=== PATIENT | male | born 1955 | race Caucasian/White ===

== ENCOUNTER 2021-03-02 14:41 | Inpatient (IN) | payer BC, SELFPAY ==
[2021-03-02] VITALS (14 sets, daily range): BP systolic 119–165; BP diastolic 75–101; PULSE 100–131; RESP 21–36; TEMP 36.3–37.2; O2SAT 72–100; BMI 18.1
--- NOTE | ~2021-03-02 | XR_ITS ---
XR chest 1V portable 03/02/2021 17:07 Indication: Shortness of breath, cough. Covid positive. Procedure: AP portable chest Comparison: 06/29/2016 Findings: Patchy infiltrates of the mid and lower lung zones, compatible with pneumonia. No pleural e ffusion or pneumothorax. No acute osseous abnormality. Heart size normal. Impression: 1: Patchy infiltrates of the mid and lower lung zones, compatible with pneumonia. Reviewed, dictated and finalized at location A. Impression: 1: Patchy infiltrates of the mid and lower lung zones, compatible with pneumoni a.
--- NOTE | 2021-03-02 16:27 | PC.NURSE ---
IV started after second attempt. No blood able to be drawn with IV start, vacutainers would not fill, IV flushes easily and painlessly. Will try again for labs.
[2021-03-02 16:55] LABS: Alveolar/Arterial O2 Gradient 35.5 mmHg; Base Excess ABG -21.5 mEq/l (+/-2.0); Fractional Inspired Oxygen 21 %; HCO3 ABG 3.9 mEq/l (22.0-26.0); Oxygen Content ABG 25.4 %vol (16.0-22.0); Oxygen Saturation ABG 96.1 % (95.0-100.0); Oxyhemoglobin 95.8 % THb (90.0-100.0); PO2 ABG 100.9 mmHg (80.0-100.0); Total Hemoglobin 18.8 g/dL (12.0-18.0)
[2021-03-02] MEDS: SODIUM CHLORIDE 0.9% IV 1,000 ML 999 ML IV CONT ×2 (16:55→18:18)
[2021-03-02] MEDS: LORazepam INJ (*CRX) 2 MG/ML VIAL 0.5 MG IV PUSH (16:57)
[2021-03-02] MEDS: ONDANSETRON INJ 4 MG/2 ML VIAL IV PUSH (16:57)
[2021-03-02 16:58] LABS: Device ROOM AIR; Modified Allen's Test Pass; PCO2 ABG 11.1 mmHg (35.0-45.0); Site Drawn RIGHT RADIAL
[2021-03-02 17:02] LABS: Glucose Point of Care > 500 mg/dl (65-105)
[2021-03-02] MEDS: INSULIN HUMAN REGULAR (*BKC) 100 UNITS/ML 12 UNITS IV PUSH (17:08)
--- NOTE | 2021-03-02 17:12 | PC.NURSE ---
Respiratory only able to obtain 0.5ml of blood for ABG, no extra for labs. Second RN trying to obtain labs, fifth attempt total. MD aware of difficulty obtaining labs. IV fluids infusing through the IV.
[2021-03-02 18:06] LABS: D Dimer 2.25 ug/mL (<0.48)
[2021-03-02 18:08] LABS: Hemoglobin A1C 13.4 % (<5.7)
[2021-03-02 18:09] LABS: Lactic Acid Reflex 2.5 mmol/L (0.7-2.1)
[2021-03-02 18:15] LABS: Basophils Percent Auto 0.3 % (0.2-1.2); Hematocrit 50.6 % (42.0-52.0); Hemoglobin 16.9 g/dL (14.0-18.0); Immature Granulocyte Absolute 0.26 K/mm3 (0.00-0.031); Immature Granulocyte Percent A 2.2 % (0-0.5); Lymphocytes Absolute Auto 0.74 K/mm3 (0.9-3.2); Lymphocytes Percent Auto 6.2 % (18.3-44.2); Mean Corpuscular HGB Conc 33.4 g/dl (32-36); Mean Corpuscular Hemoglobin 30.3 pg (26-34); Mean Corpuscular Volume 90.7 fl (80-100); Mean Platelet Volume 10.1 fl (7.4-10.4); Monocytes Absolute Auto 0.4 K/mm3 (0.1-0.6); Monocytes Percent Auto 3.1 % (2.6-8.5); Neutrophils Absolute Auto 10.5 K/mm3 (1.3-6.7); Neutrophils Percent Auto 88.2 % (45.5-73.1); Platelet Count Result 301 k/mm3 (150-375); Red Blood Count 5.58 M/mm3 (4.6-6.20); White Blood Count 11.9 K/mm3 (4.5-10.0)
--- NOTE | 2021-03-02 18:19 | PC.NURSE ---
RN spoke with pharmacy, still have not received insulin drip. MD aware. Pharmacy to send insulin.
--- NOTE | 2021-03-02 18:28 | PC.NURSE ---
Pt urinated on self, clean/dry gown and linens applied. Pt lethargic, remains A&OX4.
[2021-03-02 18:32] LABS: Alanine Aminotransferase 21 U/L (4-50); Albumin Level 4.5 g/dL (3.5-5.1); Alkaline Phosphatase 108 U/L (38-126); Aspartate Amino Transferase 21 U/L (17-59); Bilirubin,Total 0.4 mg/dL (0.2-1.3); Blood Urea Nitrogen 33 mg/dL (9-20); Calcium 9.5 mg/dL (8.4-10.2); Carbon Dioxide < 5 mmol/L (22-30); Chloride 110 mmol/L (98-107); Estimated CRCL calculation 37 ml/min; Estimated Glomerular Filt Rate 47; Glucose 604 mg/dL (65-110); Lipase 31 U/L (23-300); Potassium 4.8 mmol/L (3.4-5.0); Sodium 140 mmol/L (137-145)
--- NOTE | 2021-03-02 18:39 | PC.NURSE ---
Called lab and talked to Neeta almanza on a BMP, Beta Hydroxybut, phos MG
--- NOTE | 2021-03-02 18:58 | ED.NAVMDI ---
HPI - Nausea/Vomiting/Diarrhea General Chief complaint: Nausea/Vomiting/Diarrhea Stated complaint: COVID +, poor appetite, vomiting Time Seen by Provider: 03/02/21 16:00 Source: patient Mode of arrival: ambulatory Limitations: no limitations History of Present Illness HPI Narrative: 66-year-old with a history of diabetes diagnosed with Covid 7 days ago here with complaints of nausea, vomiting, not eating or drinking for last 2 days. He states since this morning his chest has been hurting. Denies any cough. No history of fever or chills. Patient is a poor historian at this time history is hyperventilating MD elicited complaint: nausea and vomiting Associated nausea: Yes Associated abdominal pain: No Exacerbating factors: none Associated symptoms: denies other symptoms Related Data Allergies Allergy/AdvReac Type Severity Reaction Status Date / Time No Known Allergies Allergy Verified 03/02/21 16:31 Review of Systems Review of Systems: ROS unobtainable: Yes unobtainable due to medical condition Exam Narrative: GENERAL: ill -appearing, thin , hyperventilating HEAD: Normocephalic, atraumatic. EYES: PERRLA and EOMI.. NECK: Supple. CHEST: Clear to auscultation. No respiratory distress. HEART: tachycardic ABDOMEN: Soft, nontender, nondistended, normal active bowel sounds. EXTREMITIES: Normal range of motion. No edema. SKIN: Warm, dry, no rash. NEURO: No focal deficits. Alert and oriented x3. PSYCH: anxious. Course Course Emergency Course: Patient appears to be extremely dehydrated we will give him 2 L of fluids start him on insulin drip. I discussed lab work with the patient . Discussed with hospitalist and geek squad agent agreed with plan. Vital Signs Vital signs: Vital Signs Temperature 36.3 C L 03/02/21 14:44 Pulse Rate 118 H 03/02/21 14:44 Blood Pressure 139/101 H 03/02/21 14:44 Pulse Oximetry 100 03/02/21 14:44 Temperature 36.3 C L 03/02/21 14:44 Pulse Rate 118 H 03/02/21 17:48 Respiratory Rate 28 H 03/02/21 17:48 Blood Pressure 145/87 H 03/02/21 16:33 Pulse Oximetry 100 03/02/21 17:00 MDM - Nausea/Vomiting/Diarrhea MDM Narrative Medical decision making narrative: With a history of diabetes, not feeling well and appears to be dehydrated and hyperventilating suspected could be DKA versus FAITH. We will start him on IV fluids, obtain blood gases. His blood sugar was greater than 600 give him IV bolus insulin and start him on insulin drip. Differential Diagnosis Differential diagnosis: Likely dehydration Medical Records Attestation: I reviewed the patient's medical records. Lab Data Attestation: I reviewed the patient's lab results. Result diagrams: 03/02/21 17:44 03/02/21 17:44 Labs: Lab Results 03/02/21 03/02/21 03/02/21 Range/Units 16:53 17:44 17:44 WBC 11.9 H (4.5-10.0) K/mm3 RBC 5.58 (4.6-6.20) M/mm3 Hgb 16.9 (14.0-18.0) g/dL Hct 50.6 (42.0-52.0) % MCV 90.7 (80-100) fl MCH 30.3 (26-34) pg MCHC 33.4 (32-36) g/dl RDW 12.0 (11.5-14.5) % Plt Count 301 (150-375) k/mm3 MPV 10.1 (7.4-10.4) fl Immature Gran % (Auto) 2.2 H (0-0.5) % Neut % (Auto) 88.2 H (45.5-73.1) % Lymph % (Auto) 6.2 L (18.3-44.2) % [place] % (Auto) 3.1 (2.6-8.5) % Eos % (Auto) 0.0 (0-4.4) % Baso % (Auto) 0.3 (0.2-1.2) % Lymph # (Auto) 0.74 L (0.9-3.2) K/mm3 [place] # (Auto) 0.4 (0.1-0.6) K/mm3 Eos # (Auto) 0.0 (0-0.3) K/mm3 Baso # (Auto) 0.0 (0.0-0.1) K/mm3 Abs Immat Gran (auto) 0.26 H (0.00-0.031) K/mm3 Absolute Neuts (auto) 10.5 H (1.3-6.7) K/mm3 Absolute Nucleated RBC 0.0 (0.0-0.012) K/mm3 Nucleated RBC % 0.0 (0.0-0.2) % D-Dimer (<0.48) ug/mL Sodium (137-145) mmol/L Potassium (3.4-5.0) mmol/L Chloride (98-107) mmol/L Carbon Dioxide (22-30) mmol/L Anion Gap (8-16) mmol/L BUN (9-20) mg/dL Creatinine (0.7-1.3) mg/dL Estim Creat
--- NOTE | 2021-03-02 19:10 | PC.NURSE ---
Insulin drip started at 1900 with Mahsa RN as second RN check. Difficulty with linking insulin bag with order via MAR, speaking with pharmacy currently. Verified insulin bag x 2 nurses.
[2021-03-02] MEDS: SODIUM BICARBONATE 8.4% 50 MEQ/50 ML SYRINGE IV PUSH ×2 (19:13→20:06)
[2021-03-02 19:28] LABS: Magnesium 2.9 mg/dL (1.6-2.3); Phosphorus 4.4 mg/dL (2.5-4.5)
[2021-03-02 19:34] LABS: Glucose Point of Care 445 mg/dl (65-105)
--- NOTE | 2021-03-02 19:58 | PM.IMHP ---
H&P: HPI History of Present Illness Date/Time: 03/02/21 19:58 this is a 66-year-old male patient who has diabetes type 2 diagnosed approximately 4 years ago. The patient recently was diagnosed with COVID-19 on February 17. The patient stated he has not been taking his insulin are monitoring his insulin as he is too tired and too sick from the COVID-19. His white count is noted to be 11.9. D-dimer is 2.25. Arterial blood gases pH 7.16. CO2 was 11.1. PO2 was 100.9. His blood sugar was 604 his A1c 13.4 lactic 2.5. It magnesium 2.9. His anion gap was outside of the in layers there was reportable limits and they were not able to calculate the anion gap. The auto club safety program coordinator was notified that the patient has DKA and he was started on insulin drip. He will be going to ICU. The patient had no fever chills and was a very poor historian. The patient was hyperventilating in the emergency room. Patient appears very ill. The patient complained of nausea and vomiting. He was given Zofran IV, Ativan IV, IV insulin, insulin drip, and sodium bicarb. The patient is being admitted to inpatient services on the date of service of 03/02/2021 Chief Complaint: Nausea and vomiting Review of Systems Review of Systems: All systems reviewed & are unremarkable except as noted in HPI and below Constitutional: Constitutional: Reports as per HPI and Reports no additional constitutional complaints Eyes: Eyes: Reports as per HPI and Reports no additional eye complaints ENT: Reports system reviewed and no additional complaints, except as documented and Reports Normal hearing present Cardiovascular: Cardiovascular: Reports no additional cardiovascular complaints Respiratory: Respiratory: Reports no additional respiratory complaints and Reports no additional respiratory complaints Gastrointestinal: Gastrointestinal: Reports as per HPI and Reports no additional gastrointestinal complaints Musculoskeletal: Musculoskeletal: Reports no additional musculoskeletal complaints Integumentary/Breasts: Skin/Breast: Reports system reviewed and no additional complaints, except as docu and Reports as per HPI Neurologic: Reports system reviewed and no additional complaints, except as documented, Reports as per HPI and Reports Normal hearing present Psychiatric: Psychiatric: Reports no additional psychiatric complaints and Reports as per HPI Endocrine: Endocrine: Reports no additional endocrine complaints Hematologic/Lymphatic: Hematologic/Lymphatic: Reports no additional hematologic/lymphatic complaints Allergic/Immunologic: Allergic/Immunologic: Reports no additional allergic/immunologic complaints [facility] Past Medical History Medical History (Updated 03/02/21 @ 20:08 by Sidra Washington NP) Chronic GERD DM2 (diabetes mellitus, type 2) Gout Surgical History Surgical History (Updated 03/02/21 @ 20:08 by Sidra Washington NP) H/O hernia repair Family History Family History (Updated 03/02/21 @ 20:09 by Sidra Washington NP) Mother Cancer Mother Cancer Social History Social History (Updated 03/02/21 @ 20:11 by Sidra Washington NP) Social History: The patient is and lives with his . His daughter now lives with him as well as the grand children as his son-in-law just from COVID-19 this month. The patient stated that he is a DNR. 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 Lifelong nonsmoker and no alcohol or illicit drugs. His is the durable power bankruptcy attorney for healthcare. Code status DNR Meds Home Medications and Allergies Allergies Allergy/AdvReac Type Severity Reaction Status Date / Time No Known Allergies Allergy Verified 03/02/21 16:31 Vital Signs Vital Signs - 24 hr 03/02/21 14:44 03/02/21 16:18 03/02/21 16:28 Temperature 36.3 C L Pulse Rate 118 H 130 H 120 H Respiratory Rate 36 H 28 H Blood Pressure 139/101 H 165/97 H Pulse Oximetry 100 98 100
--- NOTE | 2021-03-02 20:00 | PC.NURSE ---
BS 364. Insulin drip rate increased to 9.1 units/hour, verified by ISATU Conner.
[2021-03-02] MEDS: SODIUM CHLORIDE 0.9% IV 1,000 ML 150 ML IV CONT (20:06)
[2021-03-02 20:52] LABS: Reflex Lactic Acid Yes or No Add Lactic
[2021-03-02] MEDS: INSULIN HUMAN REGULAR (*BKC) 100 UNITS in SODIUM CHLORIDE 0.9% IV 99 ML 10.5 UNITS IV CONT (21:00)
--- NOTE | 2021-03-02 21:08 | PC.NURSE ---
Repeat BS 322. Insulin drip rate increased to 10.5 units/hr, verified by ISATU Bragg. Repeat BMP attempted, unable to draw. Pt to be transferred to ICU at this time.
[2021-03-02 21:20] LABS: Glucose Point of Care 322 mg/dl (65-105)
[2021-03-02 21:20] LABS: Glucose Point of Care 364 mg/dl (65-105)
[2021-03-02 22:15] LABS: Anion Gap 22 mmol/L (8-16); Blood Urea Nitrogen 31 mg/dL (9-20); Calcium 9.4 mg/dL (8.4-10.2); Carbon Dioxide 12 mmol/L (22-30); Chloride 117 mmol/L (98-107); Estimated CRCL calculation 55 ml/min; Estimated Glomerular Filt Rate > 60; Glucose 285 mg/dL (65-110); Sodium 151 mmol/L (137-145)
--- NOTE | 2021-03-02 22:35 | ADMIMU ---
This patient, Amando Chase, was admitted to IMU status, and placed in Intensive Care Unit-1 on 03/02 2115. Patient oriented to hospital policies and general routines including ID bracelet, bed and alarms, visiting hours, pain management, procedures, bathroom and other care routines, personal items, smoking policy, room service/diet, and visiting hours. Information on how to activate the Rapid Response Team has been discussed. Patient/Family are encouraged to report perceived risks to care and to ask questions if they do not understand what they are told or what they should do.
[2021-03-02] MEDS: FAMOTIDINE 20 MG/2 ML VIAL IV PUSH (22:43)
[2021-03-02] MEDS: KCL 20 MEQ/D5/0.45% SOD CHL 1,000 ML 150 ML IV CONT (22:52)
--- NOTE | 2021-03-02 22:53 | PC.NURSE ---
During admission assessment pt states wish to be DNI/DNR. No breathing tube or vent, no compressions or meds regardless of situation. Pt refuses Flu vaccine and states he was not vaccinated for covid.
[2021-03-02 23:30] LABS: Glucose Point of Care 238 mg/dl (65-105)
[2021-03-02 23:30] LABS: Glucose Point of Care 194 mg/dl (65-105)
[2021-03-03] VITALS (12 sets, daily range): BP systolic 113–129; BP diastolic 69–76; PULSE 76–122; RESP 21–29; TEMP 37.1–37.7; O2SAT 93–98; BMI 16.6
[2021-03-03 00:58] LABS: Glucose Point of Care 208 mg/dl (65-105)
[2021-03-03 01:59] LABS: Glucose Point of Care 203 mg/dl (65-105)
[2021-03-03 02:09] LABS: Lactic Acid Reflex 1.8 mmol/L (0.7-2.1)
--- NOTE | 2021-03-03 02:10 | PC.NURSE ---
Message left for telehealth nurse educator per consult
[2021-03-03 02:14] LABS: Anion Gap 12 mmol/L (8-16); Blood Urea Nitrogen 27 mg/dL (9-20); Calcium 8.9 mg/dL (8.4-10.2); Carbon Dioxide 19 mmol/L (22-30); Chloride 118 mmol/L (98-107); Estimated CRCL calculation 56 ml/min; Estimated Glomerular Filt Rate > 60; Glucose 228 mg/dL (65-110); Sodium 149 mmol/L (137-145)
[2021-03-03] MEDS: INSULIN HUMAN REGULAR (*BKC) 100 UNITS in SODIUM CHLORIDE 0.9% IV 99 ML IV CONT (03:04)
[2021-03-03 03:12] LABS: Glucose Point of Care 177 mg/dl (65-105)
[2021-03-03 04:09] LABS: Glucose Point of Care 190 mg/dl (65-105)
[2021-03-03 04:27] LABS: Add Urine Microscopic? YES; Appearance Urine Clear (Clear); Bilirubin Urine Negative (Negative); Blood Urine 1+ (Negative); Color Urine Yellow (Yellow); Glucose Urine UA 3+ mg/dL (Negative); Ketones Urine 2+ mg/dL (Negative); Leukocyte Esterase Ur Negative LEU/UL (Negative); Mucus Urine Rare /lpf; Nitrate Urine Negative (Negative); Protein Urine 1+ mg/dL (Negative); RBC Urine 0-2 /hpf (0-2); Specific Grav Ur 1.026 (1.001-1.035); Urobilinogen Urine Negative mg/dL (<2.0); WBC Urine 0-3 /hpf
[2021-03-03] MEDS: KCL 20 MEQ/D5/0.45% SOD CHL 1,000 ML 150 ML IV CONT (05:15)
[2021-03-03 05:37] LABS: Glucose Point of Care 198 mg/dl (65-105)
[2021-03-03 06:03] LABS: Alanine Aminotransferase 17 U/L (4-50); Albumin Level 3.6 g/dL (3.5-5.1); Alkaline Phosphatase 72 U/L (38-126); Anion Gap 11 mmol/L (8-16); Aspartate Amino Transferase 23 U/L (17-59); Bilirubin,Total 0.4 mg/dL (0.2-1.3); Blood Urea Nitrogen 24 mg/dL (9-20); Calcium 8.9 mg/dL (8.4-10.2); Carbon Dioxide 17 mmol/L (22-30); Chloride 121 mmol/L (98-107); Estimated CRCL calculation 57 ml/min; Estimated Glomerular Filt Rate > 60; Glucose 187 mg/dL (65-110); Magnesium 2.3 mg/dL (1.6-2.3); Sodium 149 mmol/L (137-145)
[2021-03-03] MEDS: INSULIN GLARGINE (*BKC) 100 UNITS/ML 20 UNITS SUB-Q (06:52)
[2021-03-03 07:33] LABS: Glucose Point of Care 143 mg/dl (65-105)
[2021-03-03 07:33] LABS: Glucose Point of Care 164 mg/dl (65-105)
[2021-03-03] MEDS: LACTATED RINGERS 1,000 ML 100 ML IV CONT ×2 (07:54→17:37)
[2021-03-03 08:04] LABS: Basophils Percent Auto 0.2 % (0.2-1.2); Eosinophils Percent Auto 0.1 % (0-4.4); Hematocrit 44.6 % (42.0-52.0); Hemoglobin 15.7 g/dL (14.0-18.0); Immature Granulocyte Absolute 0.09 K/mm3 (0.00-0.031); Immature Granulocyte Percent A 0.8 % (0-0.5); Lymphocytes Absolute Auto 0.71 K/mm3 (0.9-3.2); Lymphocytes Percent Auto 5.9 % (18.3-44.2); Mean Corpuscular HGB Conc 35.2 g/dl (32-36); Mean Corpuscular Hemoglobin 30.8 pg (26-34); Mean Corpuscular Volume 87.5 fl (80-100); Mean Platelet Volume 9.5 fl (7.4-10.4); Monocytes Absolute Auto 0.6 K/mm3 (0.1-0.6); Monocytes Percent Auto 4.8 % (2.6-8.5); Neutrophils Absolute Auto 10.6 K/mm3 (1.3-6.7); Neutrophils Percent Auto 88.2 % (45.5-73.1); Platelet Count Result 252 k/mm3 (150-375); Red Cell Distribution Width 12.1 % (11.5-14.5)
[2021-03-03] MEDS: ENOXAPARIN 40 MG/0.4 ML SYRINGE SUB-Q (09:18)
[2021-03-03] MEDS: metFORMIN HCL 500 MG TABLET 1000 MG PO ×2 (09:18→17:32)
[2021-03-03] MEDS: FAMOTIDINE 20 MG/2 ML VIAL IV PUSH ×2 (09:18→21:03)
[2021-03-03 09:23] LABS: Thyroid Stimulating Hormone Reflex 0.414 uIU/mL (0.465-4.68)
[2021-03-03 09:25] LABS: Glucose Point of Care 174 mg/dl (65-105)
--- NOTE | 2021-03-03 09:57 | WPDCNINT ---
Assessment and Plan Assessment and plan (1) DKA (diabetic ketoacidosis): Qualifiers: Diabetes mellitus complication detail: without coma Diabetes mellitus type: type 2 Qualified Code(s): E11.10 - Type 2 diabetes mellitus with ketoacidosis without coma Code(s): E11.10 - Type 2 diabetes mellitus with ketoacidosis without coma Status: Acute Assessment and Plan: Patient presented on 03/02/2021 to the ED with complains of nausea, vomiting, diarrhea, fatigue. Patient had elevated blood sugars, anion gap metabolic acidosis, positive beta hydroxybutyrate and was diagnosed with DKA, given IV fluids and started on insulin infusion per DKA protocol and transferred to the ICU for further management -patient was given additional IV fluid bolus this morning as he was thirsty with dry oral mucosa and tachycardia -tachycardia resolved with additional IV fluid bolus -patient has been transition to long-acting insulin and sliding scale insulin along with p.o. metformin (2) DM2 (diabetes mellitus, type 2): Code(s): E11.9 - Type 2 diabetes mellitus without complications Status: Chronic Assessment and Plan: Patient has history of diabetes type 2, stated that he has not been taking his insulin as he was very weak and sick with COVID-19 -hemoglobin A1c this admission is 13.4 (3) COVID-19: Code(s): U07.1 - COVID-19 Status: Acute Assessment and Plan: Patient tested positive for COVID -19 on 02/17/2021 -currently on room air -continue to monitor (4) Chronic GERD: Code(s): K21.9 - Gastro-esophageal reflux disease without esophagitis Status: Chronic Assessment and Plan: Continue famotidine (5) DVT prophylaxis: Code(s): Z29.9 - Encounter for prophylactic measures, unspecified Status: Acute Assessment and Plan: Lovenox subQ Additional Plan Discussed with patient updated with his condition and plan of care. He is aware that he will be transition to long-acting insulin and metformin. Code status: Do not resuscitate Critical care time spent:47 minutes This dictation may have been done utilizing a voice recognition system. Attempts have been made to correct errors. However, there may be uncorrected grammatical, spelling, and recognition errors present. Due to a high probability of clinically significant, life threatening deterioration, the patient required my highest level of preparedness to intervene emergently and I personally spent this critical care time directly and personally managing the patient. This critical care time included obtaining a history; examining the patient; pulse oximetry; ordering and review of studies; arranging urgent treatment with development of a management plan; evaluation of patient's response to treatment; frequent reassessment; and discussions with other providers. It was exclusive of separately billable procedures and treating other patients and teaching time. Please see Assessment and Plan section and the rest of the note for further information on patient assessment and treatment Shredding Machine Tender Consult Note Consult date: 03/03/21 Time Seen: 06:49 Reason for consult: DKA, Covid positive HPI: Amando Chase is a 66 year old male with past medical history of chronic GERD, diabetes type 2, gout presented the ED on 03/02/2021 with complaints of nausea, vomiting, diarrhea. Patient also stated that he was tested positive for COVID on 02/17/2021. Patient states that he has not been taking his insulin for monitoring his blood sugars as he was too tired and sick from COVID-19. In the ER patient had elevated blood sugars, anion gap metabolic acidosis along with positive beta hydroxybutyrate. Patient was diagnosed with DKA, given IV fluids and started on insulin infusion per DKA protocol and transferred to the ICU for further management. Patient has been on room air with no respiratory symptoms. Patient seen and examined this morning, sta
[2021-03-03] MEDS: LACTATED RINGERS 1,000 ML 999 ML IV CONT (10:15)
[2021-03-03 12:45] LABS: Glucose Point of Care 291 mg/dl (65-105)
[2021-03-03] MEDS: INSULIN ASPART (*BKC) 100 UNITS/ML SUB-Q (13:08)
[2021-03-03 13:22] LABS: Free T4 Free Thyroxine Reflex 1.21 ng/dL (0.78-2.19)
[2021-03-03 14:39] LABS: Total Triiodothyronine (T3) 0.46 NG/ML (0.97-1.69)
[2021-03-03] MEDS: ACETAMINOPHEN 325 MG TABLET 650 MG PO (17:36)
[2021-03-03 18:41] LABS: Glucose Point of Care 136 mg/dl (65-105)
[2021-03-04] VITALS (7 sets, daily range): BP systolic 112–130; BP diastolic 66–80; PULSE 61–80; RESP 16–24; TEMP 36.1–37.6; O2SAT 95–98
[2021-03-04 02:12] LABS: Glucose Point of Care 198 mg/dl (65-105)
[2021-03-04] MEDS: LACTATED RINGERS 1,000 ML 100 ML IV CONT (03:21)
[2021-03-04 04:23] LABS: Basophils Percent Auto 0.2 % (0.2-1.2); Eosinophils Absolute Auto 0.1 K/mm3 (0-0.3); Eosinophils Percent Auto 1.1 % (0-4.4); Hematocrit 35.3 % (42.0-52.0); Hemoglobin 12.7 g/dL (14.0-18.0); Immature Granulocyte Absolute 0.09 K/mm3 (0.00-0.031); Immature Granulocyte Percent A 0.9 % (0-0.5); Lymphocytes Absolute Auto 1.36 K/mm3 (0.9-3.2); Lymphocytes Percent Auto 13.1 % (18.3-44.2); Mean Corpuscular Hemoglobin 30.8 pg (26-34); Mean Corpuscular Volume 85.7 fl (80-100); Mean Platelet Volume 9.3 fl (7.4-10.4); Monocytes Absolute Auto 0.6 K/mm3 (0.1-0.6); Monocytes Percent Auto 5.3 % (2.6-8.5); Neutrophils Absolute Auto 8.3 K/mm3 (1.3-6.7); Neutrophils Percent Auto 79.4 % (45.5-73.1); Platelet Count Result 237 k/mm3 (150-375); Red Blood Count 4.12 M/mm3 (4.6-6.20); Red Cell Distribution Width 12.3 % (11.5-14.5); White Blood Count 10.4 K/mm3 (4.5-10.0)
[2021-03-04 04:40] LABS: Alanine Aminotransferase 17 U/L (4-50); Albumin Level 2.8 g/dL (3.5-5.1); Alkaline Phosphatase 61 U/L (38-126); Anion Gap 6 mmol/L (8-16); Aspartate Amino Transferase 31 U/L (17-59); Bilirubin,Total 0.3 mg/dL (0.2-1.3); Blood Urea Nitrogen 13 mg/dL (9-20); Calcium 8.4 mg/dL (8.4-10.2); Carbon Dioxide 25 mmol/L (22-30); Chloride 114 mmol/L (98-107); Estimated CRCL calculation 68 ml/min; Estimated Glomerular Filt Rate > 60; Glucose 243 mg/dL (65-110); Potassium 3.7 mmol/L (3.4-5.0); Sodium 145 mmol/L (137-145)
[2021-03-04] MEDS: INSULIN ASPART (*BKC) 100 UNITS/ML SUB-Q ×3 (09:26→19:03)
[2021-03-04] MEDS: ENOXAPARIN 40 MG/0.4 ML SYRINGE SUB-Q (09:27)
[2021-03-04] MEDS: FAMOTIDINE 20 MG/2 ML VIAL IV PUSH ×2 (09:27→20:26)
[2021-03-04] MEDS: metFORMIN HCL 500 MG TABLET 1000 MG PO ×2 (09:27→19:03)
[2021-03-04] MEDS: INSULIN GLARGINE (*BKC) 100 UNITS/ML 20 UNITS SUB-Q (09:28)
[2021-03-04 09:37] LABS: Glucose Point of Care 223 mg/dl (65-105)
[2021-03-04 12:41] LABS: Glucose Point of Care 210 mg/dl (65-105)
--- NOTE | 2021-03-04 13:47 | PC.NURSE ---
This patient, Amando Chase, was transferred to [facility] on 03/04/21 at 1320. Personal belongings sent with patient. Report given to RN. Appropriate documentation sent with patient.
[2021-03-04 19:52] LABS: Glucose Point of Care 221 mg/dl (65-105)
[2021-03-04 21:20] LABS: Glucose Point of Care 190 mg/dl (65-105)
[2021-03-05] VITALS: BP 111/68; PULSE 68; RESP 16; TEMP 36.7; O2SAT 96
--- NOTE | 2021-03-05 07:48 | PM.IMPN ---
Progress Note: A&P Assessment and Plan (1) DKA (diabetic ketoacidosis): Qualifiers: Diabetes mellitus complication detail: without coma Diabetes mellitus type: type 2 Qualified Code(s): E11.10 - Type 2 diabetes mellitus with ketoacidosis without coma Code(s): E11.10 - Type 2 diabetes mellitus with ketoacidosis without coma Status: Acute Assessment and Plan: Patient presented on 03/02/2021 to the ED with complains of nausea, vomiting, diarrhea, fatigue. Patient had elevated blood sugars, anion gap metabolic acidosis, positive beta hydroxybutyrate and was diagnosed with DKA, given IV fluids and started on insulin infusion per DKA protocol and transferred to the ICU for further management -patient was given additional IV fluid bolus this morning as he was thirsty with dry oral mucosa and tachycardia -tachycardia resolved with additional IV fluid bolus -patient has been transition to long-acting insulin and sliding scale insulin along with p.o. metformin 03/04/2021 Interval History: Today patient is sitting in his chair patient is isolated COVID test is pending, denies any complaint chest pain or shortness of breath polyuria polydipsia, patient is off insulin drip and on long-acting insulin as well as sliding scale, patient was started on metformin, patient is clinically stable and will be moved out of ICU today and will take over the care. spoke with the patient on phone from outside ICU glass door (2) DM2 (diabetes mellitus, type 2): Code(s): E11.9 - Type 2 diabetes mellitus without complications Status: Chronic Assessment and Plan: Patient has history of diabetes type 2, stated that he has not been taking his insulin as he was very weak and sick with COVID-19 -hemoglobin A1c this admission is 13.4 (3) COVID-19: Code(s): U07.1 - COVID-19 Status: Acute Assessment and Plan: Patient tested positive for COVID -19 on 02/17/2021 -currently on room air -continue to monitor (4) Chronic GERD: Code(s): K21.9 - Gastro-esophageal reflux disease without esophagitis Status: Chronic Assessment and Plan: Continue famotidine (5) DVT prophylaxis: Code(s): Z29.9 - Encounter for prophylactic measures, unspecified Status: Acute Assessment and Plan: Lovenox subQ Subjective Date/time seen: 03/04/2021 Patient presented on 03/02/2021 to the ED with complains of nausea, vomiting, diarrhea, fatigue. Patient had elevated blood sugars, anion gap metabolic acidosis, positive beta hydroxybutyrate and was diagnosed with DKA, given IV fluids and started on insulin infusion per DKA protocol and transferred to the ICU for further management -patient was given additional IV fluid bolus this morning as he was thirsty with dry oral mucosa and tachycardia -tachycardia resolved with additional IV fluid bolus -patient has been transition to long-acting insulin and sliding scale insulin along with p.o. metformin 03/04/2021 Interval History: Today patient is sitting in his chair patient is isolated COVID test is pending, denies any complaint chest pain or shortness of breath polyuria polydipsia, patient is off insulin drip and on long-acting insulin as well as sliding scale, patient was started on metformin, patient is clinically stable and will be moved out of ICU today and will take over the care. spoke with the patient on phone from outside ICU glass door Review of Systems Review of Systems: All systems reviewed & are unremarkable except as noted in HPI and below Exam Narrative: undernourished Patient is comfortable, NAD HEENT: eyes are clear and none icteric LUNGS: normal respiratory effort ABD: not distended Lower extremities: no edema SKIN: nonjaundiced Neuro: grossly intact normal speech. Objective Data Vital Signs Vital Signs: Vital Signs - 24 hr 03/04/21 08:00 03/04/21 12:00 03/04/21 16:00 Temperature 97.8 F 96.9 F L Pulse Rate 69 73 61 Respir
[2021-03-05 08:00] VITALS: BP 133/67; PULSE 89; RESP 18; TEMP 36.3; O2SAT 99
[2021-03-05 08:15] LABS: Glucose Point of Care 185 mg/dl (65-105)
[2021-03-05] MEDS: FAMOTIDINE 20 MG/2 ML VIAL IV PUSH (08:32)
[2021-03-05] MEDS: metFORMIN HCL 500 MG TABLET 1000 MG PO (08:32)
[2021-03-05] MEDS: ENOXAPARIN 40 MG/0.4 ML SYRINGE SUB-Q (08:32)
[2021-03-05] MEDS: INSULIN GLARGINE (*BKC) 100 UNITS/ML 20 UNITS SUB-Q (08:37)
[2021-03-05] MEDS: ONDANSETRON INJ 4 MG/2 ML VIAL IV PUSH (10:01)
[2021-03-05 10:49] LABS: Hematocrit 41.8 % (42.0-52.0); Hemoglobin 15.1 g/dL (14.0-18.0); Mean Corpuscular HGB Conc 36.1 g/dl (32-36); Mean Corpuscular Hemoglobin 30.9 pg (26-34); Mean Corpuscular Volume 85.5 fl (80-100); Mean Platelet Volume 9.5 fl (7.4-10.4); Platelet Count Result 271 k/mm3 (150-375); Red Blood Count 4.89 M/mm3 (4.6-6.20); Red Cell Distribution Width 11.9 % (11.5-14.5); White Blood Count 9.5 K/mm3 (4.5-10.0)
[2021-03-05 10:55] LABS: Anion Gap 10 mmol/L (8-16); Blood Urea Nitrogen 12 mg/dL (9-20); Calcium 8.9 mg/dL (8.4-10.2); Carbon Dioxide 26 mmol/L (22-30); Chloride 102 mmol/L (98-107); Estimated CRCL calculation 89 ml/min; Estimated Glomerular Filt Rate > 60; Glucose 304 mg/dL (65-110); Magnesium 1.9 mg/dL (1.6-2.3); Potassium 3.4 mmol/L (3.4-5.0); Sodium 138 mmol/L (137-145)
--- NOTE | 2021-03-05 12:07 | PM.DS ---
DS: Admitting Diagnosis Discharge Date 03/05/2021 Admitting Diagnosis DKA DS: Discharge Diagnosis Discharge Diagnosis (1) DKA (diabetic ketoacidosis): Qualifiers: Diabetes mellitus complication detail: without coma Diabetes mellitus type: type 2 Qualified Code(s): E11.10 - Type 2 diabetes mellitus with ketoacidosis without coma Code(s): E11.10 - Type 2 diabetes mellitus with ketoacidosis without coma Status: Acute Assessment and Plan: Patient presented on 03/02/2021 to the ED with complains of nausea, vomiting, diarrhea, fatigue. Patient had elevated blood sugars, anion gap metabolic acidosis, positive beta hydroxybutyrate and was diagnosed with DKA, given IV fluids and started on insulin infusion per DKA protocol and transferred to the ICU for further management -patient was given additional IV fluid bolus this morning as he was thirsty with dry oral mucosa and tachycardia -tachycardia resolved with additional IV fluid bolus -patient has been transition to long-acting insulin and sliding scale insulin along with p.o. metformin 03/04/2021 Interval History: Today patient is sitting in his chair patient is isolated COVID test is pending, denies any complaint chest pain or shortness of breath polyuria polydipsia, patient is off insulin drip and on long-acting insulin as well as sliding scale, patient was started on metformin, patient is clinically stable and will be moved out of ICU today and will take over the care. spoke with the patient on phone from outside ICU glass door (2) DM2 (diabetes mellitus, type 2): Code(s): E11.9 - Type 2 diabetes mellitus without complications Status: Chronic Assessment and Plan: Patient has history of diabetes type 2, stated that he has not been taking his insulin as he was very weak and sick with COVID-19 -hemoglobin A1c this admission is 13.4 (3) COVID-19: Code(s): U07.1 - COVID-19 Status: Acute Assessment and Plan: Patient tested positive for COVID -19 on 02/17/2021 -currently on room air -continue to monitor (4) Chronic GERD: Code(s): K21.9 - Gastro-esophageal reflux disease without esophagitis Status: Chronic Assessment and Plan: Continue famotidine (5) DVT prophylaxis: Code(s): Z29.9 - Encounter for prophylactic measures, unspecified Status: Acute Assessment and Plan: Lovenox subQ DS: Summary Hospital Course Reason for hospitalization: this is a 66-year-old male patient who has diabetes type 2 diagnosed approximately 4 years ago. The patient recently was diagnosed with COVID-19 on February 17. The patient stated he has not been taking his insulin are monitoring his insulin as he is too tired and too sick from the COVID-19. His white count is noted to be 11.9. D-dimer is 2.25. Arterial blood gases pH 7.16. CO2 was 11.1. PO2 was 100.9. His blood sugar was 604 his A1c 13.4 lactic 2.5. It magnesium 2.9. His anion gap was outside of the in layers there was reportable limits and they were not able to calculate the anion gap. The pharmacometrician was notified that the patient has DKA and he was started on insulin drip. He will be going to ICU. The patient had no fever chills and was a very poor historian. The patient was hyperventilating in the emergency room. Patient appears very ill. The patient complained of nausea and vomiting. He was given Zofran IV, Ativan IV, IV insulin, insulin drip, and sodium bicarb. The patient is being admitted to inpatient services on the date of service of 03/02/2021 Chief Complaint: Nausea and vomiting Hospital Course: 03/04/2021 Interval History: Today patient is sitting in his chair patient is isolated COVID, tested positive on 02/23, denies any complaint chest pain or shortness of breath polyuria polydipsia, patient is off insulin drip and on long-acting insulin as well as sliding scale, patient was started on metformin, patient is clinically stable and will be m
[2021-03-05 12:17] LABS: Glucose Point of Care 215 mg/dl (65-105)
[2021-03-05] MEDS: POTASSIUM CHLORIDE 20 MEQ TABLET 40 MEQ PO (12:51)
[2021-03-05] MEDS: INSULIN ASPART (*BKC) 100 UNITS/ML SUB-Q (12:53)
== END 2021-03-05 15:00 | disposition home or self-care (01) | DRG 637 ==
LOC: ANHED 18:58 → ANHICU 03-03 10:25 → ANH3MEDSUR 03-05 12:07 → ANHICU 03-09 11:52
PROVIDERS: Internal Medicine; Nurse Practitioner; Admitting Provider Internal Medicine; Emergency Provider Family Medicine; PCP Internal Medicine; Visit Provider Family Medicine
DX: E11.10 Type 2 diabetes mellitus with ketoacidosis without coma (principal); U07.1 COVID-19; K21.9 Gastro-esophageal reflux disease without esophagitis; M10.9 Gout, unspecified; Z66 Do not resuscitate; Z28.21 Immunization not carried out because of patient refusal; Z79.4 Long term (current) use of insulin; Z79.84 Long term (current) use of oral hypoglycemic drugs
CPT/HCPCS: 36415; 36600; 71045; 80048; 80053; 81001; 82010; 82805; 82948; 83036; 83605; 83690; 83735; 84100; 84439; 84443; 84480; 85025; 85027; 85380; 96361; 96374; 96375; 97110; 97116; 97161; 97165; 99285; A9270; J1650; J1815; J2060; J2405; J3480; J7030; J7120

== ENCOUNTER 2021-12-27 10:51 | Outpatient (RCR) | payer BC, SELFPAY ==
[2021-12-27 11:02] VITALS: BMI 18.6
[2021-12-27 11:33] VITALS: BMI 18.6
== END 2022-03-14 08:49 | disposition home or self-care (01) ==
LOC: ANHDMC 10:51
PROVIDERS: PCP Internal Medicine; Visit Provider Nurse Practitioner
DX: E13.9 Other specified diabetes mellitus without complications (principal); Z71.3 Dietary counseling and surveillance
CPT/HCPCS: 97802

== ENCOUNTER 2022-02-24 11:15 | Emergency (ER) | payer BC, SELFPAY ==
[2022-02-24 11:25] VITALS: BP 122/74; PULSE 108; RESP 18; TEMP 37.1; O2SAT 97
--- NOTE | 2022-02-24 11:32 | ED.URI ---
HPI - URI/Sore Throat General Chief Complaint: Upper Respiratory Infection Stated Complaint: Coughing, Dehydration Time Seen by Provider: 02/24/22 11:32 Source: patient, RN notes reviewed and old records reviewed Mode of arrival: ambulatory Limitations: no limitations History of Present Illness HPI Narrative: 67-year-old male presents to the [facility] with 1 week of coughing, feeling dehydrated uncontrolled blood sugars and generalized not feeling well. Reporting that he is a type I diabetic and sugars have been in the 600s. States he cannot get them controlled. Reports fevers 101. Patient stated that he thought we could do lab work and IV fluid here in clinic. MD elicited complaint: fever, cough and other (History dehydration) Pertinent past history: other (Type I diabetic) Onset (ago): week(s) (1) Consistency: constant Related Data Home Medications Medication Instructions Recorded Confirmed Lantus U-100 Insulin 20 units subcut HS 03/02/21 03/02/21 metformin 1,000 mg PO BID 03/02/21 03/02/21 Allergies Allergy/AdvReac Type Severity Reaction Status Date / Time No Known Allergies Allergy Verified 03/02/21 16:31 Review of Systems Review of Systems: All systems reviewed & are unremarkable except as noted in HPI and below Constitutional: Constitutional: Reports as per HPI, Denies chills, Reports fatigue and Reports fever(s) Eyes: Eyes: Reports no additional eye complaints ENT: Reports system reviewed and no additional complaints, except as documented Cardiovascular: Cardiovascular: Reports no additional cardiovascular complaints Respiratory: Respiratory: Reports as per HPI, Reports no additional respiratory complaints, Denies chest congestion, Reports cough, Denies dyspnea and Denies wheezing Gastrointestinal: Gastrointestinal: Reports no additional gastrointestinal complaints Musculoskeletal: Musculoskeletal: Reports no additional musculoskeletal complaints Integumentary/Breasts: Skin/Breast: Reports system reviewed and no additional complaints, except as docu Neurologic: Reports system reviewed and no additional complaints, except as documented Psychiatric: Psychiatric: Reports no additional psychiatric complaints Endocrine: Endocrine: Reports as per HPI, Reports fatigue and Reports polydipsia Allergic/Immunologic: Allergic/Immunologic: Reports no additional allergic/immunologic complaints FOR[facility]LY [facility] Past Medical History Medical History (Updated 02/24/22 @ 11:52 by Fawn Garcia, [place]) Chronic GERD Diabetes mellitus DM2 (diabetes mellitus, type 2) Gout Surgical History Surgical History H/O hernia repair Family History Family History Mother Cancer Mother Cancer Social History Social History Social History: The patient is and lives with his . His daughter now lives with him as well as the grand children as his son-in-law just from COVID-19 this month. The patient stated that he is a DNR. 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 Lifelong nonsmoker and no alcohol or illicit drugs. His is the durable power commercial litigation attorney for healthcare. Code status DNR Smoking status: Never smoker Second hand tobacco smoke exposure: No Alcohol intake: never Substance use: never Spiritual care concerns: No Comments At the time of my signature, I reviewed and agree with the nursing past medical, surgical, social, and family history. There is no relevant family history pertinent to the patient complaint. Exam Const: General: no acute distress, alert, ill appearing (Acute on chronic) and well nourished Nutritional Appearance: well nourished and thin Orientation/consciousness: patient oriented x3 Limitations: no limitations HENMT: Head: normal to inspection Ear
[2022-02-24 11:39] LABS: Glucose Point of Care 434 mg/dl (65-105)
== END 2022-02-24 11:49 | disposition short-term general hospital (02) ==
PROVIDERS: Emergency Provider Nurse Practitioner; PCP Internal Medicine
DX: E10.65 Type 1 diabetes mellitus with hyperglycemia (principal); Z79.4 Long term (current) use of insulin; Z79.84 Long term (current) use of oral hypoglycemic drugs; M10.9 Gout, unspecified; K21.9 Gastro-esophageal reflux disease without esophagitis
CPT/HCPCS: 82948; 99212; G0463

== ENCOUNTER 2022-02-24 12:03 | Observation (INO) | payer BC, SELFPAY ==
[2022-02-24] VITALS (27 sets, daily range): BP systolic 112–137; BP diastolic 65–109; PULSE 94–115; RESP 13–29; TEMP 36.7–37.7; O2SAT 97–100; BMI 19.5
--- NOTE | ~2022-02-24 | XR_ITS ---
EXAMINATION: XR chest 2V DATE: 02/24/2022 12:54 INDICATION: Pneumonia. Cough and congestion. TECHNIQUE: Frontal and lateral views of the chest were obtained. COMPARISON: Chest single view 03/02/2021, chest CT 06/29/2016 FINDINGS: There are airspace opacities in the basilar lower lobes. No pleural effusion or pneumothora x. The heart size is normal. There is a gallstone in the gallbladder. IMPRESSION: 1. Airspace opacities in the basilar lower lobes, consistent with atelectasis versus pneumonia. 2. Cholelithiasis. Reviewed, dictated and finalized at location A. IMPRESSION: 1. Airspace opacities in the basilar lower lobes, consistent with atelectasis v ersus pneumonia. 2. Cholelithiasis.
--- NOTE | 2022-02-24 12:13 | ED.RECABL ---
HPI - Recheck/Abnormal Lab/Rx General Chief Complaint: Recheck/Abnormal Lab/Rx Stated Complaint: Blood sugar, dehydration, sent over from [facility] Time Seen by Provider: 02/24/22 12:10 History of Present Illness HPI narrative: Patient is a 67-year-old male with a history of type 1 diabetes presenting with hyperglycemia. Patient states that for the last week he has had URI-like symptoms. States that his cough is worsened over the last couple of days. He was seen in urgent care earlier today and found to have high blood sugar so he was sent in for further evaluation. States that he feels dehydrated. States that he feels like he has had spasms in his chest. Complains of intermittent stabbing chest pain and mild shortness of breath. He denies headache, lightheadedness, numbness or weakness, abdominal pain, nausea or vomiting, diarrhea, dysuria, leg swelling. Related Data Home Medications Medication Instructions Recorded Confirmed Semglee Pen U-100 Insulin See Rx Instructions .Route .COMPLEX 02/24/22 02/24/22 Humalog U-100 Insulin See Protocol 02/25/22 Allergies Allergy/AdvReac Type Severity Reaction Status Date / Time No Known Allergies Allergy Verified 02/24/22 18:03 Review of Systems Review of Systems: All systems reviewed & are unremarkable except as noted in HPI and below PMFSH Past Medical History Medical History (Updated 02/26/22 @ 19:01 by Parul Ricardo MD) Chronic GERD COVID-19 Diabetes mellitus DM2 (diabetes mellitus, type 2) Gout Surgical History Surgical History H/O hernia repair Family History Family History Mother Cancer Mother Cancer Social History Social History (Updated 02/24/22 @ 16:29 by Sidra Washington NP) Social History: The patient is and lives with his . 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 Lifelong nonsmoker and no alcohol or illicit drugs. His is the durable power criminal attorney for healthcare. Code status DNR Smoking status: Never smoker Second hand tobacco smoke exposure: No Alcohol intake: never Substance use: never Substance use type: does not use Spiritual care concerns: No Has the Lack of Transportation Kept You From Medical Appointments or From Getting Medications?: No Within the Past 12 Months, Were You Worried Whether Your Food Would Run Out Before You Got Money to Buy More?: Never True What is Your Housing Situation Today?: I Have Housing Are You Worried That in the Next 2 Months, You May Not Have Your Own Housing to Live In?: No Do You Have Trouble Paying Your Heating Or Electricity Bill?: No Do You Have Trouble Paying For Medicines?: No Are You Currently Unemployed and Looking for Work?: No Highest Level of Education Completed: Bachelor's Degree Do You Have Trouble With Childcare or the Care of a Family Member?: No Exam Narrative: GENERAL: Well-appearing, well-nourished, and in no acute distress. HEAD: Normocephalic, atraumatic. EYES: PERRLA and EOMI. ENT: Nares clear, no rhinorrhea or epistaxis. Mucous membranes moist. NECK: Supple. CHEST: Clear to auscultation. No respiratory distress. HEART: Tachycardic, regular rhythm. No murmur heard. Normal peripheral pulses. ABDOMEN: Soft, nontender, nondistended, normal active bowel sounds. EXTREMITIES: Normal range of motion. No edema. SKIN: Warm, dry, no rash. NEURO: No focal deficits. Alert and oriented x3. PSYCH: Normal mood and affect. Course Course Emergency Course: Patient is a 67-year-old male presenting with hyperglycemia and URI symptoms. Patient is tachycardic, otherwise vitals are within normal limits. Exam is unremarkable. EKG per my interpretation shows normal
[2022-02-24 12:15] LABS: Glucose Point of Care 374 mg/dl (65-105)
[2022-02-24 12:26] LABS: Basophils Absolute Auto 0.1 K/mm3 (0.0-0.1); Basophils Percent Auto 0.4 % (0.2-1.2); Eosinophils Absolute Auto 0.2 K/mm3 (0-0.3); Eosinophils Percent Auto 0.9 % (0-4.4); Hematocrit 41.6 % (42.0-52.0); Hemoglobin 14.5 g/dL (14.0-18.0); Immature Granulocyte Absolute 0.09 K/mm3 (0.00-0.031); Immature Granulocyte Percent A 0.5 % (0-0.5); Lymphocytes Percent Auto 6.7 % (18.3-44.2); Mean Corpuscular HGB Conc 34.9 g/dl (32-36); Mean Corpuscular Hemoglobin 29.7 pg (26-34); Mean Corpuscular Volume 85.1 fl (80-100); Mean Platelet Volume 9.2 fl (7.4-10.4); Monocytes Absolute Auto 1.2 K/mm3 (0.1-0.6); Monocytes Percent Auto 6.6 % (2.6-8.5); Neutrophils Absolute Auto 15.2 K/mm3 (1.3-6.7); Neutrophils Percent Auto 84.9 % (45.5-73.1); Platelet Count Result 301 k/mm3 (150-375); Red Blood Count 4.89 M/mm3 (4.6-6.20); Red Cell Distribution Width 12.4 % (11.5-14.5)
[2022-02-24 12:36] LABS: Alanine Aminotransferase 19 U/L (6-50); Albumin Level 4.3 g/dL (3.5-5.1); Alkaline Phosphatase 157 U/L (38-126); Anion Gap 20 mmol/L (8-16); Aspartate Amino Transferase 23 U/L (17-59); Bilirubin,Total 0.8 mg/dL (0.2-1.3); Blood Urea Nitrogen 9 mg/dL (9-20); Calcium 9.4 mg/dL (8.4-10.2); Carbon Dioxide 22 mmol/L (22-30); Chloride 94 mmol/L (98-107); Estimated CRCL calculation 114 ml/min; Estimated Glomerular Filt Rate > 60; Glucose 422 mg/dL (65-110); Magnesium 1.8 mg/dL (1.6-2.3); Phosphorus 3.1 mg/dL (2.5-4.5); Potassium 3.7 mmol/L (3.4-5.0); Sodium 136 mmol/L (137-145)
[2022-02-24 12:39] LABS: Add Urine Microscopic? YES; Appearance Urine Clear (Clear); Bacteria Urine Trace /hpf; Bilirubin Urine Negative (Negative); Blood Urine 1+ (Negative); Color Urine Yellow (Yellow); Glucose Urine UA 3+ mg/dL (Negative); Ketones Urine 2+ mg/dL (Negative); Leukocyte Esterase Ur Negative LEU/UL (Negative); Mucus Urine Rare /lpf; Nitrate Urine Negative (Negative); Protein Urine 1+ mg/dL (Negative); Urobilinogen Urine Negative mg/dL (<2.0); WBC Urine 0-3 /hpf
--- NOTE | 2022-02-24 12:50 | ECG_ITS ---
Measurements Intervals [place] Rate: 97 P: 69 [place]: 119 QRS: 65 QRSD: 90 T: 44 QT: 330 QTc: 420 Interpretive Statements SINUS RHYTHM WITH SHORT [place] INTERVAL NONSPECIFIC T-WAVE ABNORMALITY NO PREVIOUS ECG AVAILABLE FOR COMPARISON Electronically Signed On 02-24-2022 14:12:18 CDT by Teofilo Tucker M.D.
[2022-02-24] MEDS: SODIUM CHLORIDE 0.9% IV 1,000 ML 999 ML IV CONT ×2 (12:56→13:29)
[2022-02-24 13:02] LABS: Influenza A QL RT-PCR Negative (Negative); Influenza B QL RT-PCR Negative (Negative); SARS-CoV-2 RNA PCR Negative
[2022-02-24 13:04] LABS: Beta-Hydroxybutyrate/Acetoacetate 1.83 mmol/L (0.02-0.27)
[2022-02-24 13:15] LABS: Troponin I < 0.012 ng/mL (0.000-0.034)
[2022-02-24] MEDS: INSULIN HUMAN REGULAR (*BKC) 100 UNITS/ML 8 UNITS SUB-Q (13:59)
[2022-02-24 14:02] LABS: Glucose Point of Care 304 mg/dl (65-105)
[2022-02-24 15:27] LABS: Anion Gap 16 mmol/L (8-16); Blood Urea Nitrogen 8 mg/dL (9-20); Calcium 8.5 mg/dL (8.4-10.2); Carbon Dioxide 22 mmol/L (22-30); Chloride 101 mmol/L (98-107); Estimated CRCL calculation 114 ml/min; Estimated Glomerular Filt Rate > 60; Glucose 234 mg/dL (65-110); Potassium 3.2 mmol/L (3.4-5.0); Sodium 139 mmol/L (137-145)
[2022-02-24 16:12] LABS: Troponin I < 0.012 ng/mL (0.000-0.034)
--- NOTE | 2022-02-24 16:27 | PM.IMHP ---
H&P: HPI History of Present Illness Date/Time: 02/24/22 16:27 Chief Complaint: abnormal blood sugars Narrative: this is a 67-year-old male patient with a history of diabetes. The patient stated for the last week he had upper respiratory symptoms. He has been coughing and had a worse cough over the couple days. The patient went to urgent care earlier today and was found have a high blood sugar. He was sent to the emergency for further evaluation. The patient does take insulin at home. The patient stated that he feels dehydrated. And feels like he is having spasms in his chest. The patient was complaining of stabbing chest pain and mild shortness of breath. He denied any headache nausea vomiting or diarrhea. Patient's white count was noted to be 18.0. Potassium was 3.2. Patient's blood sugar initially was 434 after 2 L of IV fluids his blood sugar came down at 304 a.m. and 234. Troponin was negative for the initial read. Patient's beta hydroxybutyrate acetoacetate was 1.83. Patient had 2+ ketones 3+ glucose. Influenza a and b and COVID are negative. Chest x-ray was read as airspace opacities in the basilar lower lobes consistent with atelectasis versus pneumonia. Cholelithiasis. The patient was supplemented with IV potassium and given IV fluids. The patient was given units of Humalog in the emergency room. He was started on azithromycin Rocephin. The patient is being admitted to observation status on the date of service of 02/24/2022 Review of Systems Review of Systems: see HPI All systems reviewed & are unremarkable except as noted in HPI and below Constitutional: Constitutional: Reports as per HPI and Reports no additional constitutional complaints Eyes: Eyes: Reports as per HPI and Reports no additional eye complaints ENT: Reports system reviewed and no additional complaints, except as documented and Reports Normal hearing present Cardiovascular: Cardiovascular: Reports no additional cardiovascular complaints Respiratory: Respiratory: Reports no additional respiratory complaints and Reports no additional respiratory complaints Gastrointestinal: Gastrointestinal: Reports as per HPI and Reports no additional gastrointestinal complaints Musculoskeletal: Musculoskeletal: Reports no additional musculoskeletal complaints Integumentary/Breasts: Skin/Breast: Reports system reviewed and no additional complaints, except as docu and Reports as per HPI Neurologic: Reports system reviewed and no additional complaints, except as documented, Reports as per HPI and Reports Normal hearing present Psychiatric: Psychiatric: Reports no additional psychiatric complaints and Reports as per HPI Endocrine: Endocrine: Reports no additional endocrine complaints Hematologic/Lymphatic: Hematologic/Lymphatic: Reports no additional hematologic/lymphatic complaints Allergic/Immunologic: Allergic/Immunologic: Reports no additional allergic/immunologic complaints COUNT INCLUDES THE [facility] Past Medical History Medical History (Updated 02/24/22 @ 19:59 by Sidra Washington NP) Chronic GERD COVID-19 Diabetes mellitus DM2 (diabetes mellitus, type 2) Gout Surgical History Surgical History H/O hernia repair Family History Family History Mother Cancer Mother Cancer Social History Social History (Updated 02/24/22 @ 16:29 by Sidra Washington NP) Social History: The patient is and lives with his . 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 Lifelong nonsmoker and no alcohol or illicit drugs. His is the durable power contracts attorney for healthcare. Code status DNR Smoking status: Never smoker Second hand tobacco smoke exposure: No Alcohol intake: never S
--- NOTE | 2022-02-24 17:17 | ADMGEN ---
This patient, JOE Chase, was admitted to Medical Room 345-01. Patient/family oriented to hospital policies and general routines including ID bracelet, bed and alarms, visiting hours, pain management, procedures, bathroom and other care routines, personal items, smoking policy, room service/diet, and visiting hours. Information on how to activate the Rapid Response Team has been discussed. Patient/Family are encouraged to report perceived risks to care and to ask questions if they do not understand what they are told or what they should do.
[2022-02-24] MEDS: POTASSIUM CHLORIDE INJ 40 MEQ in SODIUM CHLORIDE 0.9% IV 500 ML 130 MEQ IVPB (17:51)
[2022-02-24] MEDS: SODIUM CHLORIDE 0.9% IV 1,000 ML 125 ML IV CONT (17:52)
[2022-02-24 19:41] LABS: Troponin I < 0.012 ng/mL (0.000-0.034)
[2022-02-24] MEDS: FLUTICASONE PROPIONATE 0.05% NA SPR 16 GM BTL (*BKC) 1 SPRAY NASAL (21:36)
[2022-02-24] MEDS: FAMOTIDINE 20 MG/2 ML VIAL IV PUSH (21:36)
[2022-02-24 22:09] LABS: Glucose Point of Care 289 mg/dl (65-105)
[2022-02-24 22:21] LABS: Anion Gap 13 mmol/L (8-16); Blood Urea Nitrogen 6 mg/dL (9-20); Carbon Dioxide 19 mmol/L (22-30); Chloride 104 mmol/L (98-107); Estimated CRCL calculation 86 ml/min; Estimated Glomerular Filt Rate > 60; Glucose 284 mg/dL (65-110); Potassium 3.8 mmol/L (3.4-5.0); Sodium 136 mmol/L (137-145)
[2022-02-24] MEDS: INSULIN GLARGINE (*BKC) 100 UNITS/ML 8 UNITS SUB-Q (23:43)
[2022-02-25] VITALS (7 sets, daily range): BP systolic 109; BP diastolic 59; PULSE 85–103; RESP 18–20; TEMP 37.3; O2SAT 96–97
[2022-02-25] MEDS: IPRATROPIUM BR 0.02% INH SOLN 0.5 MG/2.5 ML VIAL INHALATION ×2 (03:54→07:22)
--- NOTE | 2022-02-25 03:54 | PCRCNOTE ---
Window of time for administration has passed. See next scheduled administration.
[2022-02-25] MEDS: SODIUM CHLORIDE 0.9% IV 1,000 ML 125 ML IV CONT (03:57)
[2022-02-25] MEDS: ALBUTEROL SULFATE NEB 2.5 MG/3 ML INH INHALATION ×2 (04:21→07:23)
[2022-02-25 05:52] LABS: Basophils Absolute Auto 0.1 K/mm3 (0.0-0.1); Basophils Percent Auto 0.5 % (0.2-1.2); Eosinophils Absolute Auto 0.4 K/mm3 (0-0.3); Eosinophils Percent Auto 2.7 % (0-4.4); Hematocrit 35.8 % (42.0-52.0); Hemoglobin 12.3 g/dL (14.0-18.0); Immature Granulocyte Absolute 0.17 K/mm3 (0.00-0.031); Immature Granulocyte Percent A 1.3 % (0-0.5); Lymphocytes Absolute Auto 1.75 K/mm3 (0.9-3.2); Lymphocytes Percent Auto 13.3 % (18.3-44.2); Mean Corpuscular HGB Conc 34.4 g/dl (32-36); Mean Corpuscular Volume 87.3 fl (80-100); Mean Platelet Volume 8.8 fl (7.4-10.4); Monocytes Percent Auto 7.5 % (2.6-8.5); Neutrophils Absolute Auto 9.8 K/mm3 (1.3-6.7); Neutrophils Percent Auto 74.7 % (45.5-73.1); Platelet Count Result 267 k/mm3 (150-375); Red Cell Distribution Width 12.5 % (11.5-14.5); White Blood Count 13.1 K/mm3 (4.5-10.0)
[2022-02-25 06:06] LABS: Alanine Aminotransferase 15 U/L (6-50); Albumin Level 2.9 g/dL (3.5-5.1); Alkaline Phosphatase 105 U/L (38-126); Anion Gap 16 mmol/L (8-16); Aspartate Amino Transferase 17 U/L (17-59); Bilirubin,Total 0.4 mg/dL (0.2-1.3); Blood Urea Nitrogen 7 mg/dL (9-20); Calcium 8.2 mg/dL (8.4-10.2); Carbon Dioxide 18 mmol/L (22-30); Chloride 105 mmol/L (98-107); Estimated CRCL calculation 86 ml/min; Estimated Glomerular Filt Rate > 60; Glucose 225 mg/dL (65-110); Magnesium 1.9 mg/dL (1.6-2.3); Potassium 3.4 mmol/L (3.4-5.0); Sodium 139 mmol/L (137-145)
[2022-02-25 08:36] LABS: Glucose Point of Care 231 mg/dl (65-105)
[2022-02-25] MEDS: FLUTICASONE PROPIONATE 0.05% NA SPR 16 GM BTL (*BKC) 1 SPRAY NASAL (08:42)
[2022-02-25] MEDS: FAMOTIDINE 20 MG/2 ML VIAL IV PUSH (08:44)
[2022-02-25] MEDS: INSULIN ASPART (*BKC) 100 UNITS/ML SUB-Q (08:45)
[2022-02-25] MEDS: INSULIN GLARGINE (*BKC) 100 UNITS/ML 12 UNITS SUB-Q (08:47)
[2022-02-25 08:54] LABS: Hemoglobin A1C > 14.0 % (<5.7)
[2022-02-25] MEDS: ENOXAPARIN 40 MG/0.4 ML SYRINGE SUB-Q (09:48)
--- NOTE | 2022-02-25 10:06 | PM.DS ---
DS: Admitting Diagnosis Discharge Date 02/25/2022 Admitting Diagnosis Community-acquired pneumonia, type 2 diabetes mellitus, chronic GERD, hypokalemia, chest pain DS: Discharge Diagnosis Discharge Diagnosis (1) DM2 (diabetes mellitus, type 2): Code(s): E11.9 - Type 2 diabetes mellitus without complications Status: Chronic Assessment and Plan: - patient presented with overtly elevated glucose greater than 400. On admission his beta hydroxybutyrate was 1.83. He was treated appropriately with IV fluids, insulin and re-evaluation. Patient's hemoglobin A1c is greater than 14. This signifies that his average daily glucose is greater than 350. I asked patient regarding this as he states he uses Humalog SS and Semglee at home. He acknowledges that he has not been taking his Humalog and has only been taking his long-acting insulin because he gets tired of so many needle sticks. Education was performed with patient that he has to have both insulins working together in order to maintain a healthy glucose in the absence of a continuous insulin pump. It does seem that this patient would have improvement in glucose if he had a pump as he would not have to continually stick himself with a needle to dose. He does see wharf tender helper, Nicho Roy in [place], and I suggest that he follow back up with her as we now have his glucose somewhat controlled with the use of a sliding scale insulin. He will need tighter glucose control. (2) Chronic GERD: Code(s): K21.9 - Gastro-esophageal reflux disease without esophagitis Status: Chronic Assessment and Plan: - Treated here with IV Pepcid. Will continue home medications upon discharge. (3) CAP (community acquired pneumonia): Code(s): J18.9 - Pneumonia, unspecified organism Status: Acute Assessment and Plan: - As evidence by imaging, and objective laboratory data. Patient was started on Rocephin and Zithromax. He will be discharged home with cefdinir and Zithromax to finish out a full course of therapy. He will then require follow-up with his primary care physician. (4) Hypokalemia: Code(s): E87.6 - Hypokalemia Status: Resolved Assessment and Plan: - Resolved as patient's potassium this morning is 3.4. (5) Chest pain: Code(s): R07.9 - Chest pain, unspecified Status: Acute Assessment and Plan: - Ruled out for cardiac causation with negative troponin trend. Most likely due to acute infection with pneumonia. His symptoms have resolved of pain. Patient will be treated for pneumonia as outpatient. DS: Summary Hospital Course Reason for hospitalization: Poorly controlled diabetes mellitus and community-acquired pneumonia. Hospital Course: This very pleasant 67-year-old male patient with significant past medical history of diabetes mellitus on chronic long-term insulin use, gout, GERD presented to the emergency room yesterday with complaints of having upper respiratory type symptoms of cough and congestion. He had been evaluated at urgent care earlier in the day and was noted to have an overtly elevated glucose of 434. Upon presentation to the emergency room he stated that he felt like he was dehydrated and was having spasms in his chest wall. Workup in the emergency room was started and [place] [id number] without left shift, potassium of 3.2, glucose of 434, negative troponin, beta hydroxybutyrate of 1.83, 2+ ketones in 3+ glucose in the urine, negative influenza a and negative COVID. In addition chest x-ray demonstrated airspace opacities in the bibasilar lobes Consistent with pneumonia. Patient was treated appropriately with IV fluid hydration and insulin for his elevated glucose and empiric antibiotics of Rocephin and azithromycin was started for a presumed community-acquired pneumonia. He was admitted to hospitalist service for further evaluation over
== END 2022-02-25 12:57 | disposition home or self-care (01) ==
LOC: ANHED 12:33 → ANH3MED 17:57
PROVIDERS: Emergency Medicine; Nurse Practitioner; Admitting Provider Chiropractor; Emergency Provider Emergency Medicine; PCP Internal Medicine; Visit Provider Nurse Practitioner Adult Health
DX: E11.65 Type 2 diabetes mellitus with hyperglycemia (principal); K21.9 Gastro-esophageal reflux disease without esophagitis; J18.9 Pneumonia, unspecified organism; E87.6 Hypokalemia; Z86.16 Personal history of COVID-19; M10.9 Gout, unspecified; R00.0 Tachycardia, unspecified; D72.829 Elevated white blood cell count, unspecified; Z20.822 Contact with and (suspected) exposure to COVID-19; R94.31 Abnormal electrocardiogram [ECG] [EKG]; R91.8 Other nonspecific abnormal finding of lung field; K80.20 Calculus of gallbladder without cholecystitis without obstruction; Z79.4 Long term (current) use of insulin
CPT/HCPCS: 36415; 71046; 80048; 80053; 81001; 82010; 82728; 82948; 83036; 83735; 84100; 84443; 84484; 85025; 87040; 87502; 93005; 94640; 96361; 96365; 96367; 96372; 96375; 96376; 99285; A9270; C9803; G0378; J0456; J0696; J1650; J1815; J3480; J7030; J7040; U0003; U0005

== ENCOUNTER 2023-02-03 12:56 | Outpatient (CLI) | payer BC, SELFPAY ==
--- NOTE | ~2023-02-03 | CT_ITS ---
EXAMINATION: CT abdomen wo/w con DATE: 02/03/2023 13:59 INDICATION: ABD PAIN TECHNIQUE: Computed tomography (CT) of the abdomen and pelvis was performed without and with 100 mL O mnipaque-350 intravenous contrast, in the portal venous and arterial phases. Automated exposure contr ol and iterative reconstruction technique were employed. The dose-length product was 449.88 mGy-cm. COMPARISON: None. FINDINGS: Considerable motion artifact particularly in the arterial phase postcontrast images. Lower thorax: Unremarkable Liver: Normal. Biliary/Gallbladder: Cholelithiasis. No bile duct dilation. Pancreas: Mild atrophy. No mass or duct dilation. Spleen: Normal. Adrenals:No mass. Kidneys: Punctate bilateral nonobstructing renal calculi. Incompletely visualized likely left upper p ole cyst No suspicious mass, obstructing stone, or hydronephrosis. GI tract: No small or large bowel dilation. Mesentery/Peritoneum: No ascites, mass, or free air. Retroperitoneum: No mass. Soft Tissues: Soft tissues and body wall unremarkable. Bones: No acute osseous finding. IMPRESSION: Motion limited examination, such that subtle pathology could be missed. Mild pancreatic atrophy. Otherwise unremarkable CT abdomen findings. Reviewed, dictated and finalized at location K.
[2023-02-03 13:45] LABS: Estimated Glomerular Filt Rate > 60
== END 2023-02-03 12:57 | disposition home or self-care (01) ==
LOC: ANHIMG 13:02
PROVIDERS: PCP Internal Medicine; Visit Provider Internal Medicine Endocrinology, Diabetes & Metabolism
DX: K86.89 Other specified diseases of pancreas (principal); R10.9 Unspecified abdominal pain
CPT/HCPCS: 74170; Q9967

== ENCOUNTER 2024-11-08 06:40 | Emergency (ER) | payer BC, SELFPAY ==
[2024-11-08 06:37] VITALS: BP 146/85; PULSE 72; RESP 18; TEMP 36.7; O2SAT 97
--- NOTE | 2024-11-08 06:43 | ECG_ITS ---
Test Date: 2024-11-08 07:17:46 Measurements Intervals [place] Rate: 78 P: 46 [place]: 132 QRS: 59 QRSD: 114 T: 31 QT: 389 QTc: 445 Interpretive Statements SINUS RHYTHM MODERATE INTRAVENTRICULAR CONDUCTION DELAY [110+ ms QRS DURATION] No previous ECG available for comparison Electronically Signed On 11-08-2024 14:07:48 CDT by Peter Pena M.D.
[2024-11-08 06:44] VITALS: RESP 18; O2SAT 97
[2024-11-08 06:52] LABS: Hematocrit 35.1 % (42.0-52.0); Hemoglobin 11.3 g/dL (14.0-18.0); Immature Granulocyte Percent A 0.8 % (0-0.5); Lymphocytes Absolute Auto 1.48 K/mm3 (0.9-3.2); Mean Corpuscular HGB Conc 32.2 g/dl (32-36); Mean Corpuscular Hemoglobin 29.3 pg (26-34); Mean Corpuscular Volume 90.9 fl (80-100); Nucleated Red Blood Cells Absolute Auto 0.000 K/mm3 (0.0-0.012); Nucleated Red Blood Cells Perc 0.0 % (0.0-0.2); Platelet Count Result 210 k/mm3 (150-375); Red Blood Count 3.86 M/mm3 (4.6-6.20); White Blood Count 8.8 K/mm3 (4.5-10.0)
[2024-11-08 07:01] LABS: Alanine Aminotransferase 17 U/L (6-50); Albumin Level 2.7 g/dL (3.5-5.1); Alkaline Phosphatase 65 U/L (38-126); Anion Gap 6 mmol/L (4-12); Aspartate Amino Transferase 23 U/L (17-59); Bilirubin,Total 0.1 mg/dL (0.2-1.3); Blood Urea Nitrogen 7 mg/dL (9-20); Calcium 8.3 mg/dL (8.4-10.2); Carbon Dioxide 22 mmol/L (22-30); Chloride 106 mmol/L (98-107); Estimated CRCL calculation 67 ml/min; Estimated Glomerular Filt Rate > 60; Glucose 326 mg/dL (65-110); Potassium 3.6 mmol/L (3.4-5.0); Sodium 134 mmol/L (137-145); Total Protein 5.2 g/dL (6.3-8.2)
[2024-11-08 07:10] LABS: INR 0.9; Prothrombin Time 12.2 Seconds (11.1-14.7)
[2024-11-08 07:11] LABS: Partial Thromboplastin Time 29.3 Seconds (22.3-36.8)
--- NOTE | 2024-11-08 07:30 | PC.NURSE ---
Breakfast tray ordered for the pt.
[2024-11-08 07:39] VITALS: BP 129/93; PULSE 77; RESP 15; O2SAT 100
[2024-11-08 07:59] LABS: Add Urine Microscopic? YES; Appearance Urine Clear (Clear); Budding Yeast Urine Present /hpf; Glucose Urine UA 2+ mg/dL (Negative); Leukocyte Esterase Ur Trace LEU/UL (Negative); Nitrate Urine Negative (Negative); Non Pathogenic Casts 0-2; Specific Grav Ur 1.009 (1.001-1.035)
--- OUTSIDE RECORDS SUMMARY | 2024-11-08 08:06 | XMS_ITS | Data Portability ---
Author Organization [place] - [facility], Main Office Address [address] [place] [address] Assessment No assessment recorded. Plan of Treatment Reminders Order Date Submit Date Provider Last Modified By Organization Details Last Modified Time Details Appointments None recorded. Lab CMP, serum or plasma 2022 023 [email or web address] [facility], [address], [place], [address], 12:34:48 HbA1c (hemoglobin A1c), blood 2022 023 [email or web address] [facility], [address], [place], [address], 12:34:48 microalbumi n/creatinin e, mass ratio, urine 2022 023 [email or web address] [facility], [address], [place], [address], 12:34:48 pancreatic elastase, stool 2022 023 TAJ [facility], [address], [place], [address], 19:44:09 O&P (ova & parasites), stool 2022 023 TAJ [facility], [address], [place], [address], 19:44:10 celiac disease comprehensi ve panel, serum 2022 023 [email or web address] [facility], [address], [place], [address], 3 11:31:57 fecal fat, qualitative , stool 2022 023 [email or web address], [address], [place], [address], 19:44:08 lipid panel, serum 2022 023 [employer] [facility], [address], [place], [address], 3 13:45:58 CMP, serum or plasma 2022 023 [employer] [facility], [address], [place], [address], 3 13:45:59 HbA1c (hemoglobin A1c), blood 2022 023 [employer] [facility], [address] [facility], [place], [address], 3 13:46:01 microalbumi n/creatinin e, mass ratio, urine 2022 023 [email or web address] [facility], [address], [place], [address], 3 13:46:00 TSH + free T4, serum 2022 023 [employer] [facility], [address] [facility], [place], [address], 3 13:46:00 Referral endocrinolo gy referral - a1c 12.8% with EPI, on enzymes and insulin; may need pump; please see soon 2022 023 prince Nelson MD, [address], [place], [address], 12:37:04 Procedures None recorded. Surgeries None recorded. Imaging CT, pancreas, w/wo contrast - dull/achy numb abdominal pain, 12 pound weight loss and worsening glucose control; concerning for pancreatic cancer, please do STAT thank you 2022 023 [facility], [address], [address] [address], [place], [address], 15:24:39 Medication Orders Gvoke HypoPen 2-Pack 1 mg/0.2 mL subcutaneou s auto-inject or 2022 023 TAJ [facility], [address] [place] [address], [address], 3 12:31:30 rosuvastati n 40 mg tablet 2022 023 TAJ [facility], [address] [place] [address], [address], 3 12:33:10 Zenpep 40,000 unit-126,00 0 unit-168,00 0 unit capsule,del ayed release 2022 023 TAJ [facility], [address] [place] [address], [address], 3 12:29:10 Semglee (insulin glargine-yf gn) Pen 100 unit/mL (3 mL) subcutaneou s 2022 023 TAJ [facility], [address] [place] [address], [address], 3 12:32:26 Humalog KwikPen (U-100) Insulin 100 unit/mL subcutaneou s 2022 023 TAJ [facility], [address] [place] [address], [address], 3 12:33:41 Tresiba FlexTouch U-100 insulin 100 unit/mL (3 mL) subcutaneou s pen 2022 023 [facility], [address] [facility], [place], [address], 3 21:32:45 rosuvastati n 40 mg tablet 2022 023 [email or web address] [facility] [id number] [facility], [facility] [address], [place], [address], 16:10:26 Semglee (insulin glargine-yf gn) Pen 100 unit/mL (3 mL) subcutaneou s 2022 023 [email or web address] [facility], [facility] [place], [address], 12:02:44 Patient TargetsNo targets recorded. Patient InstructionsNo instructions recorded. Reason for Referral Endocrinology Referral for U ncontrolled type 1 diabetes mellitus a1c 12.8% with EPI, on enzymes and insulin; may need pump; please see soon Referring Physician: Cheryl Contreras, Endocrinology, Encounter Date: 02/05/2023 Results Created Date Observation Date Name Description Value Unit Range Abnormal Flag Note LastModifiedBy Organization Detail LastModifiedTime 08/03/1908/03/2022 LIPID PANEL WITH REFLE X TO DIREC T LDL cholesterol, total 159 mg/dL <200 normal Not Available [facility] [address] [address] [place], [address], 08/03/2022 13:45:58 08/03/19 23 08/03/2022 LIPID PANEL WITH REFLE X TO DIREC T LDL HDL cholesterol 67 mg/dL > or = 40 normal Not Available [facility] [address] [address] [place], [address], 08/03/2022 13:45:58 08/03/19 23 08/03/2022 LIPID PANEL WITH REFLE X TO DIREC T LDL triglyceride s 68 mg/dL <150 normal Not Available [facility] [address] [address] [place], [address], 08/03/2022 13:45:58 08/03/19 23 08/03/2022 LIPID PANEL WITH REFLE X TO DIREC T LDL LDL-choleste rol 78 mg/dL _(ricardo c) normal Refer ence range : <100 Joycelyn able range <100 mg/dL for prima ry preve ntion ; <70 mg/dL for patie nts with CHD or diabe tic patie nts with > or = 2 CHD risk facto rs. LDL-C is now calcu lated using the Rachel n-Hop kins calcu samantha n, which is a valid ated novel metho d provi ding marcelina r accur acy than the Fried liam equat ion in the estim ation of LDL-C . Rachel shepherd SS et al. CHERRY. 2013; 310(1 9): 2061- 2068 (http ://ed ucati on.Qu melodyFadel Partners. com/f aq/FA Q164) Not Available [facility] [address] [address] [place], [address], 08/03/2022 13:45:58 08/03/19 23 08/03/2022 LIPID PANEL WITH REFLE X TO DIREC T LDL chol/HDLC ratio 2.4 (calc ) <5.0 normal Not Available [facility] [address] [address] [place], [address], 08/03/2022 13:45:58 08/03/19 23 08/03/2022 LIPID PANEL WITH REFLE X TO DIREC T LDL non HDL cholesterol 92 mg/dL _(ricardo c) <130 normal For patie nts with diabe holden plus 1 major ASCVD risk facto r, treat ing to a non-H DL-C goal of <100 mg/dL (LDL- C of <70 mg/dL ) is monalisa durham optio n. Not Available [facility] [address] [place], [address], 08/03/2022 13:45:58 08/03/19 23 08/03/2022 COMPR EHENS AVERY METAB OLIC PANEL glucose 229 mg/dL 65-99 high Fasti ng refer ence inter venkata For someo ne witho ut known diabe holden, a gluco se value >125 mg/dL indic ates that they may have diabe holden and this shoul d be confi rmed with a follo w-up test. Not Available [facility] [address] [address] [place], [address], 08/03/2022 13:45:59 08/03/19 23 08/03/2022 COMPR EHENS AVERY METAB OLIC PANEL urea nitrogen (BUN) 14 mg/dL 7-25 normal Not Available [facility] [address] [address] [place], [address], 08/03/2022 13:45:59 08/03/19 23 08/03/2022 COMPR EHENS AVERY METAB OLIC PANEL creatinine 0.79 mg/dL 0.70-1 .35 normal Not Available [facility] [address] [address] [place], [address], 08/03/2022 13:45:59 08/03/19 23 08/03/2022 COMPR EHENS AVERY METAB OLIC PANEL eGFR 99 mL/mi n/1.7 3m2 > or = 60 normal The eGFR is based on the CKD-E PI 2020 equat ion. To calcu late the new eGFR from a previ ous Creat inine or Cysta tin C resul t, go to https ://eleuterio duval.jesika garcia/mic barrera s/ kdoqi /gfr% 5Fcal culat or Not Available [facility] [address] [address] [place], [address], 08/03/2022 13:45:59 08/03/19 23 08/03/2022 COMPR EHENS AVERY METAB OLIC PANEL BUN/creatini ne ratio NOT APPLIC ABLE (calc ) 6-22 Not Available [facility] [address] [address] [place], [address], 08/03/2022 13:45:59 08/03/19 23 08/03/2022 COMPR EHENS AVERY METAB OLIC PANEL sodium 135 mmol/ L 135-14 6 normal Not Available [address], [address], 08/03/2022 13:45:59 08/03/19 23 08/03/2022 COMPR EHENS AVERY METAB OLIC PANEL potassium 4.3 mmol/ L 3.5-5. 3 normal Not Available [address], [address], 08/03/2022 13:45:59 08/03/19 23 08/03/2022 COMPR EHENS AVERY METAB OLIC PANEL chloride 99 mmol/ L 98-110 normal Not Available [address], [address], 08/03/2022 13:45:59 08/03/19 23 08/03/2022 COMPR EHENS AVERY METAB OLIC PANEL carbon dioxide 27 mmol/ L 20-32 normal Not Available [address], [address], 08/03/2022 13:45:59 08/03/19 23 08/03/2022 COMPR EHENS AVERY METAB OLIC PANEL calcium 9.5 mg/dL 8.6-10 .3 normal Not Available [address], [address], 08/03/2022 13:45:59 08/03/19 23 08/03/2022 COMPR EHENS AVERY METAB OLIC PANEL protein, total 6.7 g/dL 6.1-8. 1 normal Not Available [address], [address], 08/03/2022 13:45:59 08/03/19 23 08/03/2022 COMPR EHENS AVERY METAB OLIC PANEL albumin 4.0 g/dL 3.6-5. 1 normal Not Available [address], [address], 08/03/2022 13:45:59 08/03/19 23 08/03/2022 COMPR EHENS AVERY METAB OLIC PANEL globulin 2.7 g/dL_ (calc ) 1.9-3. 7 normal Not Available [address], [address], 08/03/2022 13:45:59 08/03/19 23 08/03/2022 COMPR EHENS AVERY METAB OLIC PANEL albumin/glob ulin ratio 1.5 (calc ) 1.0-2. 5 normal Not Available [address], [address], 08/03/2022 13:45:59 08/03/19 23 08/03/2022 COMPR EHENS AVERY METAB OLIC PANEL bilirubin, total 0.4 mg/dL 0.2-1. 2 normal Not Available [address], [address], 08/03/2022 13:45:59 08/03/19 23 08/03/2022 COMPR EHENS AVERY METAB OLIC PANEL alkaline phosphatase 83 U/L 35-144 normal Not Available [address], [address], 08/03/2022 13:45:59 08/03/19 23 08/03/2022 COMPR EHENS AVERY METAB OLIC PANEL AST 20 U/L 10-35 normal Not Available [address], [address], 08/03/2022 13:45:59 08/03/19 23 08/03/2022 COMPR EHENS AVERY METAB OLIC PANEL ALT 18 U/L 9-46 normal Not Available [address], [address], 08/03/2022 13:45:59 08/03/19 23 08/03/2022 ALBUM IN, RANDO M URINE W/CRE ATINI NE creatinine, random urine 74 mg/dL 20-320 normal Not Available [address], [address], 08/03/2022 13:46:00 08/03/19 23 08/03/2022 ALBUM IN, RANDO M URINE W/CRE ATINI NE albumin, urine 0.8 mg/dL see note: normal Refer ence Range : Refer ence Range Not estab lishe d Not Available [address], [place], [address], 08/03/2022 13:46:00 08/03/19 23 08/03/2022 ALBUM IN, RANDO M URINE W/CRE ATINI NE albumin/crea tinine ratio, random urine 11 mcg/m g_cre at <30 normal The ADA defin es abnor malit ies in album in excre tion as follo ws: Album inuri a Categ ory Resul t (mcg/ mg creat inine ) Meghna l to Mildl y incre ased <30 Moder ately incre ased 30-29 9 Sever genevieve incre ased > OR = 300 The ADA recom mends that at least two of three speci mens colle cted withi n a 3-6 month perio d be abnor mal befor e consi melisa g a patie nt to be withi n a diagn ostic categ ory. Not Available [address], [address], 08/03/2022 13:46:00 08/03/19 23 08/03/2022 TSH+F REE T4 TSH 4.68 mIU/L 0.40-4 .50 high Not Available [address], [address], 08/03/2022 13:46:00 08/03/19 23 08/03/2022 TSH+F REE T4 T4, free 1.2 NG/dL 0.8-1. 8 normal Not Available [address] [place], [address], 08/03/2022 13:46:00 08/03/1908/03/2022 HEMOG LOBIN A1C hemoglobin A1C >14.0 %_of_ total _HGB <5.7 high Verif ied by repea t xin sis. For someo ne witho ut known diabe holden, a hemog lobin A1c value of 6.5% or great er indic ates that they may have diabe holden and this shoul d be confi rmed with a follo w-up test. For someo ne with known diabe holden, a value <7% indic ates that their diabe holden is well contr olled and a value great er than or equal to 7% indic ates subop timal contr ol. A1c targe ts shoul d be indiv idual ized based on durat ion of diabe holden, age, comor bid condi tions , and other consi derat ions. Curre ntly, no conse nsus exist s amber ma use of hemog lobin A1c for diagn osis of diabe holden for child giselle. Not Available [facility] [address] [address] [place], [address], 08/03/2022 13:46:01 08/05/19 23 08/11/2022 FECAL FAT, QUALI TATIV E fecal fat, qualitative NORMAL normal Not Available [facility] [address] [place], [address], 08/11/2022 19:44:08 08/05/1908/11/2022 PANCR EATIC ELAST ASE-1 pancreatic elastase-1 224 mcg/g Adult and Pedia tric Refer ence Range s for Pancr eatic Elast ase-1 : Meghna l: >200 mcg/g Moder ate Pancr eatic Insuf ficie ncy: 100-2 00 mcg/g Sever e Pancr eatic Insuf ficie ncy: <100 mcg/g Elast ase-1 (E-1) assay resul ts are expre ssed in mcg/g , which repre sent mcg E1/g feces . It is not neces maxine to inter rupt enzym e subst ituti on thera py. Not Available [facility] [address] [address] [place], [address], 08/11/2022 19:44:09 08/05/19 23 08/11/2022 OVA AND JENNY ITES WITH GIARD IA ANTIG EN giardia Ag, EIA, stool SEE NOTE GIARD IA AG, EIA, STOOL Micro Numbe r: [id number] Test Statu s: Final Speci men Sourc e: Stool Speci men Quali ty: Adequ ate Giard ia Resul t 1: Not Detec mattie Refer ence Range : Not Detec mattie NOTE: Due to inter mitte nt seema ing, one negat avery sampl e does not neces saril y rule out the prese nce of a jenny itic infec tion. Not Available [facility] [address] [place], [address], 08/11/2022 19:44:10 08/05/19 23 08/11/2022 OVA AND JENNY ITES WITH GIARD IA ANTIG EN ova and parasites, conc and perm smear SEE NOTE OVA AND JENNY ITES, CONC AND PERM SMEAR Micro Numbe r: [id number] Test Statu s: Final Speci men Sourc e: Stool Speci men Quali ty: Adequ ate NO NTRAT ION 1: No ova or jenny ites seen TRICH MESFIN 1: No ova or jenny ites seen Routi ne Ova and Jenny ite exam may not detec t some jenny ites that occas ional ly cause diarr heal illne ss. Crypt ospor idium Antig en and/o r Cyclo spora and Isosp ora Exam may be order ed to detec t these jenny ites. One negat avery sampl e does not neces saril y rule out the prese nce of a jenny itic infec tion. For addit ional infor pratik espinoza e refer to https ://ed ucati on.qu savage Pop[employer]. Soompi/f aq/FA Q203 (This link is being provi ded for infor leidy walters/ educa aditi l purpo ses only. ) Not Available [address] [address] [place], [address], 08/11/2022 19:44:10 09/14/19 23 09/14/2022 LIPID PANEL WITH REFLE X TO DIREC T LDL cholesterol, total 116 mg/dL <200 normal Not Available [facility] [address] [address] [place], [address], 09/14/2022 07:26:02 09/14/19 23 09/14/2022 LIPID PANEL WITH REFLE X TO DIREC T LDL HDL cholesterol 45 mg/dL > or = 40 normal Not Available [facility] [address] [address] [place], [address], 09/14/2022 07:26:02 09/14/19 23 09/14/2022 LIPID PANEL WITH REFLE X TO DIREC T LDL triglyceride s 60 mg/dL <150 normal Not Available [facility] [address] [address] [place], [address], 09/14/2022 07:26:02 09/14/1909/14/2022 LIPID PANEL WITH REFLE X TO DIREC T LDL LDL-choleste rol 57 mg/dL _(ricardo c) normal Refer ence range : <100 Joycelyn able range <100 mg/dL for prima ry preve ntion ; <70 mg/dL for patie nts with CHD or diabe tic patie nts with > or = 2 CHD risk facto rs. LDL-C is now calcu lated using the Rachel n-Hop kins calcu latlala n, which is a valid ated novel metho d provi anil marcelina r accur acy than the Fried liam equat ion in the estim ation of LDL-C . Rachel shepherd SS et al. CHERRY. 2013; 310(1 9): 2061- 2068 (http ://ed ucati on.Qu estDi [employer]. com/f aq/FA Q164) Not Available [facility] [address] [address] [place], [address], 09/14/2022 07:26:02 09/14/19 23 09/14/2022 LIPID PANEL WITH REFLE X TO DIREC T LDL chol/HDLC ratio 2.6 (calc ) <5.0 normal Not Available [address] [place], [address], 09/14/2022 07:26:02 09/14/19 23 09/14/2022 LIPID PANEL WITH REFLE X TO DIREC T LDL non HDL cholesterol 71 mg/dL _(ricardo c) <130 normal For patie nts with diabe holden plus 1 major ASCVD risk facto r, treat ing to a non-H DL-C goal of <100 mg/dL (LDL- C of <70 mg/dL ) is rasi jerilyn espinosa c optio n. Not Available [address] [address] [place], [address], 09/14/2022 07:26:02 09/14/1909/14/2022 COMPR EHENS AVERY METAB OLIC PANEL glucose 65 mg/dL 65-99 normal Fasti ng refer ence inter venkata Not Available [address] [place], [address], 09/14/2022 07:26:03 09/14/1909/14/2022 COMPR EHENS AVERY METAB OLIC PANEL urea nitrogen (BUN) 13 mg/dL 7-25 normal Not Available [address], [address], 09/14/2022 07:26:03 09/14/19 23 09/14/2022 COMPR EHENS AVERY METAB OLIC PANEL creatinine 0.82 mg/dL 0.70-1 .35 normal Not Available [address] [address] [place], [address], 09/14/2022 07:26:03 09/14/19 23 09/14/2022 COMPR EHENS AVERY METAB OLIC PANEL eGFR 97 mL/mi n/1.7 3m2 > or = 60 normal The eGFR is based on the CKD-E PI 2020 equat ion. To calcu late the new eGFR from a previ ous Creat inine or Cysta pete C resul t, go to https ://eleuterio duval.jesika garcia/mic barrera s/ kdoqi /gfr% 5Fcal culat or Not Available [address], [address], 09/14/2022 07:26:03 09/14/19 23 09/14/2022 COMPR EHENS AVERY METAB OLIC PANEL BUN/creatini ne ratio NOT APPLIC ABLE (calc ) 6-22 Not Available [address], [address], 09/14/2022 07:26:03 09/14/19 23 09/14/2022 COMPR EHENS AVERY METAB OLIC PANEL sodium 141 mmol/ L 135-14 6 normal Not Available [address] [address] [place], [address], 09/14/2022 07:26:03 09/14/19 23 09/14/2022 COMPR EHENS AVERY METAB OLIC PANEL potassium 3.4 mmol/ L 3.5-5. 3 low Not Available [address], [address], 09/14/2022 07:26:03 09/14/19 23 09/14/2022 COMPR EHENS AVERY METAB OLIC PANEL chloride 104 mmol/ L 98-110 normal Not Available [facility] [address], [address], 09/14/2022 07:26:03 09/14/19 23 09/14/2022 COMPR EHENS AVERY METAB OLIC PANEL carbon dioxide 28 mmol/ L 20-32 normal Not Available [facility] [address], [address], 09/14/2022 07:26:03 09/14/19 23 09/14/2022 COMPR EHENS AVERY METAB OLIC PANEL calcium 9.6 mg/dL 8.6-10 .3 normal Not Available [address], [address], 09/14/2022 07:26:03 09/14/19 23 09/14/2022 COMPR EHENS AVERY METAB OLIC PANEL protein, total 7.0 g/dL 6.1-8. 1 normal Not Available [address], [address], 09/14/2022 07:26:03 09/14/19 23 09/14/2022 COMPR EHENS AVERY METAB OLIC PANEL albumin 4.1 g/dL 3.6-5. 1 normal Not Available [address], [address], 09/14/2022 07:26:03 09/14/19 23 09/14/2022 COMPR EHENS AVERY METAB OLIC PANEL globulin 2.9 g/dL_ (calc ) 1.9-3. 7 normal Not Available [address], [address], 09/14/2022 07:26:03 09/14/19 23 09/14/2022 COMPR EHENS AVERY METAB OLIC PANEL albumin/glob ulin ratio 1.4 (calc ) 1.0-2. 5 normal Not Available [address], [address], 09/14/2022 07:26:03 09/14/19 23 09/14/2022 COMPR EHENS AVERY METAB OLIC PANEL bilirubin, total 0.4 mg/dL 0.2-1. 2 normal Not Available [address], [address], 09/14/2022 07:26:03 09/14/19 23 09/14/2022 COMPR EHENS AVERY METAB OLIC PANEL alkaline phosphatase 77 U/L 35-144 normal Not Available [address] [address] [place], [address], 09/14/2022 07:26:03 09/14/19 23 09/14/2022 COMPR EHENS AVERY METAB OLIC PANEL AST 15 U/L 10-35 normal Not Available [address] [address] [place], [address], 09/14/2022 07:26:03 09/14/19 23 09/14/2022 COMPR EHENS AVERY METAB OLIC PANEL ALT 16 U/L 9-46 normal Not Available [address], [address], 09/14/2022 07:26:03 09/14/19 23 09/14/2022 TSH+F REE T4 TSH 2.98 mIU/L 0.40-4 .50 normal Not Available [address] [address] [place], [address], 09/14/2022 07:26:03 09/14/19 23 09/14/2022 TSH+F REE T4 T4, free 1.3 NG/dL 0.8-1. 8 normal Not Available [address], [address], 09/14/2022 07:26:03 09/14/1909/14/2022 HEMOG LOBIN A1C hemoglobin A1C 12.5 %_of_ total _HGB <5.7 high For someo ne witho ut known diabe holden, a hemog lobin A1c value of 6.5% or great er indic ates that they may have diabe holden and this shoul d be confi rmed with a follo w-up test. For someo ne with known diabe holden, a value <7% indic ates that their diabe holden is well contr olled and a value great er than or equal to 7% indic ates subop timal contr ol. A1c targe ts shoul d be indiv idual ized based on durat ion of diabe holden, age, comor bid condi tions , and other consi derat ions. Curre ntly, no conse nsus exist s amber ma use of hemog lobin A1c for diagn osis of diabe holden for child giselle. Not Available [address] [address] [place], [address], 09/14/2022 07:26:03 09/14/1909/14/2022 ALBUM IN, RANDO M URINE W/CRE ATINI NE creatinine, random urine 28 mg/dL 20-320 normal Not Available [address] [address] [place], [address], 09/14/2022 17:36:00 09/14/19 23 09/14/2022 ALBUM IN, RANDO M URINE W/CRE ATINI NE albumin, urine 0.6 mg/dL see note: normal Refer ence Range : Refer ence Range Not estab lishe d Not Available [facility] [address] [address] [address] , [place], [address], 09/14/2022 17:36:00 09/14/19 23 09/14/2022 ALBUM IN, RANDO M URINE W/CRE ATINI NE albumin/crea tinine ratio, random urine 21 mcg/m g_cre at <30 normal The ADA defin es abnor malit ies in album in excre tion as follo ws: Album inuri a Categ ory Resul t (mcg/ mg creat inine ) Meghna l to Mildl y incre ased <30 Moder ately incre ased 30-29 9 Sever genevieve incre ased > OR = 300 The ADA recom mends that at least two of three speci mens colle cted withi n a 3-6 month perio d be abnor mal befor e consi melisa g a patie nt to be withi n a diagn ostic categ ory. Not Available [facility] [address] [address] [place], [address], 09/14/2022 17:36:00 12/01/19 23 12/01/2022 COMPR EHENS AVERY METAB OLIC PANEL glucose 322 mg/dL 65-99 high Fasti ng refer ence inter venkata For someo ne witho ut known diabe holden, a gluco se value >125 mg/dL indic ates that they may have diabe holden and this shoul d be confi rmed with a follo w-up test. Not Available [facility] [address] [address] [place], [address], 12/01/2022 07:30:21 12/01/19 23 12/01/2022 COMPR EHENS AVERY METAB OLIC PANEL urea nitrogen (BUN) 10 mg/dL 7-25 normal Not Available [address], [address], 12/01/2022 07:30:21 12/01/19 23 12/01/2022 COMPR EHENS AVERY METAB OLIC PANEL creatinine 0.88 mg/dL 0.70-1 .35 normal Not Available [facility] [address] [address] [place], [address], 12/01/2022 07:30:21 12/01/1912/01/2022 COMPR EHENS AVERY METAB OLIC PANEL eGFR 95 mL/mi n/1.7 3m2 > or = 60 normal The eGFR is based on the CKD-E PI 2020 equat ion. To calcu late the new eGFR from a previ ous Creat inine or Cysta tin C resul t, go to https ://eleuterio santos.rosa maria duval.o jose/mic pastor/ kdoqi /gfr% 5Fcal culat or Not Available [facility] [address] [address] [place], [address], 12/01/2022 07:30:21 12/01/19 23 12/01/2022 COMPR EHENS AVERY METAB OLIC PANEL BUN/creatini ne ratio NOT APPLIC ABLE (calc ) 6-22 Not Available [facility] [employer] [address] [address] [place], [address], 12/01/2022 07:30:21 12/01/19 23 12/01/2022 COMPR EHENS AVERY METAB OLIC PANEL sodium 135 mmol/ L 135-14 6 normal Not Available [address], [address], 12/01/2022 07:30:21 12/01/19 23 12/01/2022 COMPR EHENS AVERY METAB OLIC PANEL potassium 3.7 mmol/ L 3.5-5. 3 normal Not Available [address], [address], 12/01/2022 07:30:21 12/01/19 23 12/01/2022 COMPR EHENS AVERY METAB OLIC PANEL chloride 100 mmol/ L 98-110 normal Not Available [address], [address], 12/01/2022 07:30:21 12/01/19 23 12/01/2022 COMPR EHENS AVERY METAB OLIC PANEL carbon dioxide 27 mmol/ L 20-32 normal Not Available [address], [address], 12/01/2022 07:30:21 12/01/19 23 12/01/2022 COMPR EHENS AVERY METAB OLIC PANEL calcium 9.2 mg/dL 8.6-10 .3 normal Not Available [address], [address], 12/01/2022 07:30:21 12/01/19 23 12/01/2022 COMPR EHENS AVERY METAB OLIC PANEL protein, total 6.5 g/dL 6.1-8. 1 normal Not Available [address], [address], 12/01/2022 07:30:21 12/01/19 23 12/01/2022 COMPR EHENS AVERY METAB OLIC PANEL albumin 4.1 g/dL 3.6-5. 1 normal Not Available [address] [address] [place], [address], 12/01/2022 07:30:21 12/01/19 23 12/01/2022 COMPR EHENS AVERY METAB OLIC PANEL globulin 2.4 g/dL_ (calc ) 1.9-3. 7 normal Not Available [address], [address], 12/01/2022 07:30:21 12/01/19 23 12/01/2022 COMPR EHENS AVERY METAB OLIC PANEL albumin/glob ulin ratio 1.7 (calc ) 1.0-2. 5 normal Not Available [address], [address], 12/01/2022 07:30:21 12/01/19 23 12/01/2022 COMPR EHENS AVERY METAB OLIC PANEL bilirubin, total 0.5 mg/dL 0.2-1. 2 normal Not Available [address], [address], 12/01/2022 07:30:21 12/01/19 23 12/01/2022 COMPR EHENS AVERY METAB OLIC PANEL alkaline phosphatase 81 U/L 35-144 normal Not Available [address] [address] [place], [address], 12/01/2022 07:30:21 12/01/19 23 12/01/2022 COMPR EHENS AVERY METAB OLIC PANEL AST 17 U/L 10-35 normal Not Available [address], [address], 12/01/2022 07:30:21 12/01/19 23 12/01/2022 COMPR EHENS AVERY METAB OLIC PANEL ALT 21 U/L 9-46 normal Not Available [address], [address], 12/01/2022 07:30:21 12/01/19 23 12/01/2022 ALBUM IN, RANDO M URINE W/CRE ATINI NE creatinine, random urine 76 mg/dL 20-320 normal Not Available [address] [address] [place], [address], 12/01/2022 07:30:23 12/01/19 23 12/01/2022 ALBUM IN, RANDO M URINE W/CRE ATINI NE albumin, urine 0.9 mg/dL see note: normal Refer ence Range : Refer ence Range Not estab lishe d Not Available [facility] [address] , [place], [address], 12/01/2022 07:30:23 12/01/19 23 12/01/2022 ALBUM IN, RANDO M URINE W/CRE ATINI NE albumin/crea tinine ratio, random urine 12 mcg/m g_cre at <30 normal The ADA defin es abnor malit ies in album in excre tion as follo ws: Album inuri a Categ ory Resul t (mcg/ mg creat inine ) Meghna l to Mildl y incre ased <30 Moder ately incre ased 30-29 9 Sever genevieve incre ased > OR = 300 The ADA recom mends that at least two of three speci mens colle cted withi n a 3-6 month perio d be abnor mal befor e consi melisa g a patie nt to be withi n a diagn ostic categ ory. Not Available [facility] [address] [place], [address], 12/01/2022 07:30:23 12/01/1912/01/2022 HEMOG LOBIN A1C hemoglobin A1C 12.8 %_of_ total _HGB <5.7 high For someo ne witho ut known diabe holden, a hemog lobin A1c value of 6.5% or great er indic ates that they may have diabe holden and this shoul d be confi rmed with a follo w-up test. For someo ne with known diabe holden, a value <7% indic ates that their diabe holden is well contr olled and a value great er than or equal to 7% indic ates subop timal contr ol. A1c targe ts shoul d be indiv idual ized based on durat ion of diabe holden, age, comor bid condi tions , and other consi derat ions. Curre ntly, no conse nsus exist s regar anil use of hemog lobin A1c for diagn osis of diabe holden for child giselle. Not Available [facility] [address], [place], [address], 12/01/2022 07:30:24 02/04/20 23 02/03/2023 CT, pancr eas, w/wo contr ast No observ ation record ed. [email or web address] [facility] [address], [place], [address], 02/06/2023 12:45:49 02/04/20 23 02/03/2023 CT, pancr eas, w/wo contr ast No observ ation record ed. [email or web address] [facility] [address], [place], [address], 02/14/2023 09:39:00 Result Notes None recorded. Problems Name Problem SNOMED Code Status Onset Date Resolution Date Notes Provider Name and Address Organization Details Recorded Time Dyslipidemia 991845709 Active 2021 Not Available [facility] 3 21:30:54 Allergic asthma 890711730 Active 2021 Not Available [facility] 3 21:30:54 Latent autoimmune diabetes mellitus in adult 902216556 Active 2021 Not Available [facility] 3 21:30:54 Type 2 diabetes mellitus 75989270 Active 2021 Not Available [facility] 3 21:30:54 Uncontrolled type 2 diabetes mellitus 055400755 Active 2021 Not Available [facility] 3 21:30:54 Loose stool 879678370 Active 2022 Cheryl Contreras MD [address], [address], [place], [address] , [facility] [employer] [facility] 3 11:30:49 Abdominal pain 82693966 Active 2022 Cheryl Contreras MD [address], [place], [address] , [facility] [employer] [facility] 3 15:54:51 Uncontrolled type 1 diabetes mellitus 243834722 Active 2022 Cheryl Contreras MD [address], [address], [place], [address] , [facility] [employer] [facility] 3 12:28:00 Exocrine pancreatic insufficiency 90048827 Active 2022 Cheryl Contreras MD [address], [address], [place], [address] , [facility] [employer] [facility] [employer] [facility] 3 12:28:09 Problem Notes None recorded. Medical Equipment None Reported. Allergies No known drug allergies Medications Name Sig Start Date Stop Date Status Note LastModified by Organization Details LastModified Time FreeStyle Eduardo 2 Sensor Change every 14 days. 2022 active Not Available Not Available Not Avai lable rosuvastati n 10 mg tablet Take 1 tablet every day by oral route for 90 days. 07/24 completed Not Available Not Available Not Available rosuvastati n 40 mg tablet TAKE 1 TABLET DAILY AT BEDTIME active Not Available Not Available No t Available ProAir HFA 90 mcg/actuati on aerosol inhaler Inhale 2 puffs every 4 hours by inhalatio n route as needed for 30 days. active Not Available Not Available No t Available Humalog KwikPen (U-100) Insulin 100 unit/mL subcutaneou s Inject 10 units 3 times a day by subcutane ous route before meals for 90 days. 2022 active Not Available Not Available Not Avai lable BD AutoShield Duo Pen Needle 30 gauge x /16 USE DIRECTED 2022 active Not Available Not Available Not Avai lable Farxiga 10 mg tablet Take 1 tablet every day by oral route for 30 days. 12/06 completed Not Available Not Available Not Available Tresiba FlexTouch U-100 insulin 100 unit/mL (3 mL) subcutaneou s pen Inject 12 units every day by subcutane ous route at bedtime for 90 days. 2022 active Not Available Not Available Not Avai lable Zenpep 40,000 unit-126,00 0 unit-168,00 0 unit capsule,del ayed release Take 1 capsule 5 times a day by oral route before meals for 90 days. 2022 active Not Available Not Available Not Avai lable Ozempic 0.25 mg or 0.5 mg (2 mg/1.5 mL) subcutaneou s pen injector Inject 0.25 mg every week by subcutane ous route for 28 days. 12/06 completed Not Available Not Available Not Available Gvoke HypoPen 2-Pack 1 mg/0.2 mL subcutaneou s auto-inject or Inject 1 mg as needed by subcutane ous route as needed for 1 day. 2022 active Not Available Not Available Not Avai terrance FreeStyle Eduardo 2 Sensor kit CHANGE EVERY 14 DAYS active Not Available Not Available No t Available FreeStyle Eduardo 2 [place] USE DIRECTED TO CHECK GLUCOSE active Not Available Not Available No t Available Semglee Pen U-100 Insulin 100 unit/mL (3 mL) subcutaneou s iNJECT 20 UNITS IN THE MORNING AND 26 UNITS AT BEDTIME. MAX DAILY DOSE 80 UNITS. 09/25 completed Not Available Not Available Not Available Semglee (insulin glargine-yf gn) Pen 100 unit/mL (3 mL) subcutaneou s INJECT UP TO 20 UNITS IN THE MORNING AND 26 UNITS AT BEDTIME active Not Available Not Available No t Available Vitals Date Recorded Body height Body mass index (BMI) Body weight Body temperature Heart rate Systolic And Diastolic Provider Name and Address Organization Details Last Updated DateTime 3 172.72 cm 18.4 kg/m2 10956.6 8 g 97.9 [degF] 91 /min 140/82 mm[Hg] Serena Alarcon CMA [place] [facility] [place] [email or web address] [facility] 3 10:55:49 Date Recorded Body height Body mass index (BMI) Body weight Body temperature Heart rate Respiratory rate Systolic And Diastolic Provider Name and Address Organization Details Last Updated DateTime 3 172.72 cm 19.4 kg/m2 54389.1 g 97.6 [degF] 97 /min 18 /min 129/78 mm[Hg] Carlene De Leon TETE [facility] [employer] [facility] 3 12:02:14 Date Recorded Body height Body mass index (BMI) Body weight Respiratory rate Body temperature Heart rate Systolic And Diastolic Provider Name and Address Organization Details Last Updated DateTime 3 172.72 cm 17.8 kg/m2 57226.3 1 g 16 /min 97.9 [degF] 95 /min 103/63 mm[Hg] Stephanie Puente RN [facility] [employer] [facility] 3 15:16:31 Date Recorded Body height Body mass index (BMI) Body weight Body temperature Respiratory rate Heart rate Systolic And Diastolic Provider Name and Address Organization Details Last Updated DateTime 3 172.72 cm 17.9 kg/m2 38558.1 8 g 98.1 [degF] 14 /min 88 /min 107/67 mm[Hg] Stephanie Puente RN [facility] [employer] [facility] 3 12:09:57 Social History None recorded. Functional Status None recorded. Mental Status None recorded. Family History Nothing Reported. Medical History Condition Response BLINDNESS N RHEUMATIC FEVER N MRSA N BACK INJECTIONS N INFECTIOUS DISEASE N HEART ARRHYTHMIA N LUNG DISEASE/DISORDER N ESRD N HISTORY OF DRUG ABUSE N INSOMNIA N COPD N RADIATION / CHEMOTHERAPY N HIGH CHOLESTEROL / HYPERLIPIDEMIA Y HYPERTHYROIDISM N EYE PROBLEMS N PVD N BLOOD DISEASES N SURGERY N EDEMA N HYPOTHYROIDISM N SHINGLES N DEPRESSION (INCLUDING POST ) N HAVE YOU BEEN HOSPITALIZED OR SEEN IN [facility] IN THE PAST YEAR ? N FAILED BACK SYNDROME N STROKE/TIA N THYROID DISEASE N BENIGN PROSTATIC HYPERPLASIA N POLYCYSTIC OVARIES N OBESITY N EXCESSIVE PERSPIRATION N GERD/NAUSEA N ANEURYSM N OSTEOPOROSIS N Do you have Advance directive? N ARTHRITIS N USE OF BLOOD THINNERS N NO SIGNIFICANT PAST MEDICAL HISTORY N SKIN PROBLEMS N DIABETES, TYPE Y VON WILLIBRAND'S DISEASE N PARATHYROID DISEASE N BLOOD CLOTS N POST LAMINECTOMY SYNDROME N HEPATITIS / LIVER DISEASE N GOUT N ALZHEIMER'S DISEASE N HERPES N ARTERIAL INSUFFICIENCY N RETINOPATHY N SEIZURES/EPILEPSY N HEADACHES/MIGRAINES N GI PROBLEMS N Low Testosterone N DIZZINESS N KIDNEY DISEASE N HEART DISEASE/HEART PROBLEMS N AIDS/HIV N LIVER DISEASE N MALE HYPOGONADISM N NEUROPSYCHOLOGICAL N HYPERTENSION N CANCER: SPECIFY N TOURETTE'S N BLOOD TRANSFUSION N ANEMIA/BLOOD DISORDER N ATRIAL FIBRILLATION N AUTOIMMUNE DISEASE N TUBERCULOSIS N GLAUCOMA N Past Encounters Encounter ID Performer Location Encounter Start Date Encounter Closed Date Diagnosis/Indication Diagnosis SNOMED-CT Code Diagnosis ICD10 Code Diagnosis Note [id number] [facility] [address] [place] [address] 10/24/2021 00:00:00 10/24/2021 13:49:07 [id number] [facility] [address] [place] [address] 12/06/2021 00:00:00 12/06/2021 18:19:50 [id number] Cheryl Contreras MD [facility] [address] [place] [address] 07/24/2022 10:48:33 07/24/2022 11:40:16 Latent autoimmune diabetes mellitus in adult 034383758 E13.9 a1c over 14% - Patient is not titrating his semglee as recommende d and not taking his humalog insulin before meals. He was advised to split his semglee and increase to 12 units in morning and 16 units at bedtime and increase by 2 units every 3 days until fasting glucose 90-130 mg/dL.Cont inue on humalog 10 units (1:5) plus correction 1u:50>150 before meals. Will reach out to [employer] to look into CGM system to maximize his knowledge on blood glucose control in addition to help maximize insulin delivery. 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 He voiced understand ing and aware to reach out to us next week if he has not been contacted to start on dexcom therapy. Will discuss insulin pump transition this summer but patient aware he needs to take his injections before meals with humalog and titrate his semglee to get his glucose control to goal range. I had a very thorough discussion regarding diabetes and complicati ons of diabetes. Risks, benefits and side effects of all medication s and therapy up to and including were discussed in detail with patient. This included not following physician recommenda tions. Patient is alert and oriented times four. Patient made their own informed and educated decision regarding diabetic care and control. is present and understand s risk and aware she will help in his care. Dyslipidemia 367822370 E 78.5 refill rosuvastat in 40 mg daily at bedtime as LDL not in ideal range. Loose stool 918449351 R1 9.5 Send for stool panel to screen for EPI and malabsorpt ion. Spent up to 28 minutes preparing to see the patient (eg, review of tests), obtaining and/or reviewing separately obtained history, performing a medically appropriat e examinatio n and evaluation , counseling and educating the patient, ordering medication s, tests, along with documentin g clinical informatio n in the electronic health record, independen tly interpreti ng results and communicat ing results to the patient. RTC in 2 months. Patient was provided a handwritte n lab order which contains our fax number. If he chooses to go outside of the [facility] system to obtain labwork he was advised to provide our fax number and my informatio n to the lab he will be obtaining labwork from in order to have his labs properly forwarded over for me to review so there is no loss of follow up due to use of outside network. He was also advised to contact our clinic informing us that he has completed his labwork so we are aware we will need to reach out to the appropriat e laboratory to request his results be forwarded to us so I might have the ability to review and make further medical decision making in his case. He voiced understand ing. [id number] MD KUSH Rivera_[facility] [address] [place] [address] 08/22/2022 11:57:50 08/22/2022 12:17:31 [id number] Cheryl Contreras MD Joao_Barbie [facility] [address] [place] [address] 09/25/2022 11:51:12 09/25/2022 12:25:56 Latent autoimmune diabetes mellitus in adult 383803303 E13.9 a1c over 12.5% down from 14% - Patient is not titrating his semglee but I am concerned he is having butcher meat lows from semglee. Will stop semglee and transition to tresiba due to long acting duration of effect and decreased frequency of hypoglycem ia associated with it. Start at 12 units once daily at bedtime and patient advised to titrate up or down by 2 units every 4 days until fasting glucose is running 90-120 mg/dL consistent ly. He was advised to follow a 1:10 carb ratio for her meals if he is eating a starchy carb diet in addition to correction of 1U:50>150 mg/dl on premeal FS prior to meals.as recommende d and not taking his humalog insulin before meals. Will discuss insulin pump transition this summer but patient aware he needs to take his injections before meals with humalog and titrate his tresiba to get his glucose control to goal range. I had a very thorough discussion regarding diabetes and complicati ons of diabetes. Risks, benefits and side effects of all medication s and therapy up to and including were discussed in detail with patient. This included not following physician recommenda tions. Patient is alert and oriented times four. Patient made their own informed and educated decision regarding diabetic care and control. is present and understand s risk and aware she will help in his care. continue rosuvastat in as LDL in goal range. Spent up to 26 minutes preparing to see the patient (eg, review of tests), obtaining and/or reviewing separately obtained history, performing a medically appropriat e examinatio n and evaluation , counseling and educating the patient, ordering medication s, tests, along with documentin g clinical informatio n in the electronic health record, independen tly interpreti ng results and communicat ing results to the patient. RTC in 2-3 months. Patient was provided a handwritte n lab order which contains our fax number. If he chooses to go outside of the [facility] system to obtain labwork he was advised to provide our fax number and my informatio n to the lab he will be obtaining labwork from in order to have his labs properly forwarded over for me to review so there is no loss of follow up due to use of outside network. He was also advised to contact our clinic informing us that he has completed his labwork so we are aware we will need to reach out to the appropriat e laboratory to request his results be forwarded to us so I might have the ability to review and make further medical decision making in his case. He voiced understand ing. [id number] Cheryl Contreras MD [facility] [address] [place] [address] 02/02/2023 15:08:11 02/02/2023 16:13:48 Latent autoimmune diabetes mellitus in adult 278926824 E13.9 a1c over 12.5% down from 14% - however a1c is not improving- patient has had 12 pound weight loss over the past two months and has noticed increased left lower quadrant achy/dull pain along with nausea. Patient stopped tresiba and transition ed back to [facility] as he felt the tresiba was not helping. Patient not titrating aggressive ly. Will uptitrate semglee to 8 units in morning and 12 units at bedtime and patient aware to titrate up or down by 2 units every 4 days until fasting glucose is running 90-120 mg/dL consistent ly. He was advised to follow a 1:10 carb ratio for her meals if he is eating a starchy carb diet in addition to correction of 1U:50>150 mg/dl on premeal FS prior to meals.Due to weight loss and abdominal changes we sent in urgent CT scan of pancreas to screen for any concerning findings. He has this scheduled for tomorrow morning at [facility] and they have my personal number to relay results. I had a very thorough discussion regarding diabetes and complicati ons of diabetes. Risks, benefits and side effects of all medication s and therapy up to and including were discussed in detail with patient. This included not following physician recommenda tions. Patient is alert and oriented times four. Patient made their own informed and educated decision regarding diabetic care and control. continue rosuvastat in as LDL in goal range. Abdominal pain 96950478 R10.[address] pancreas due to worsening DM, weight loss and dull achy pain. Patient aware this is STAT- we could get him in today but he deferred to put off to tomorrow morning. We will await results to determine best next step in his care. He was provided samples of zenpep/dig estive enzymes to see if this will help with his loose stools and help with weight. He is aware he may need to see gastroente rology or oncology depending on findings of imaging. He voiced understand ing. Spent up to 26 minutes preparing to see the patient (eg, review of tests), obtaining and/or reviewing separately obtained history, performing a medically appropriat e examinatio n and evaluation , counseling and educating the patient, ordering medication s, tests, along with documentin g clinical informatio n in the electronic health record, independen tly interpreti ng results and communicat ing results to the patient. RTC in next 1-2 weeks to discuss findings and plan however he will receive call once we have results to CT scan. [id number] Cheryl Contreras MD [facility] [address] [place] [address] 02/05/2023 12:03:40 02/05/2023 12:37:04 Uncontrolled type 1 diabetes mellitus 015843042 E10.65 A1C 12.8%- patient not taking his insulin as recommende d- he did not take semglee this morning- he did take 15 units last night and sugar was 98 mg/dL this morning- he is now up to 269 mg/dL after having tea and cookie this morning and not taking any humalog to cover for his food intake. He was reminded of importance of taking his insulin at proper timing intervals- continue on semglee but start at 10 units in morning and 15 units at bedtime and increase by 2 units every 3 days until fasting glucose 90-130 mg/dL. He was reminded to please take at least 3 units for small meals up to 6 units for large meals in addition to correction of 1U:50mg/dL >150 mg/dL. Provided Gvoke for hypoglycem ia rescue. I had a very thorough discussion regarding diabetes and complicati ons of diabetes. Risks, benefits and side effects of all medication s and therapy up to and including were discussed in detail with patient. This included not following physician recommenda tions. Patient is alert and oriented times four. Patient made their own informed and educated decision regarding his diabetic care and need to take insulin correctly. Exocrine p ancreatic insufficiency 81071187 K86.81 Provided script for zenpep enzymes for EPI and to help with weight gain as he has had significan t weight loss due to poor malabsorpt ion. Latent aut oimmune diabetes mellitus in adult 427739474 E13.9 a1c over 12.5% down from 14% - however a1c is not improving- patient has had 12 pound weight loss over the past two months and has noticed increased left lower quadrant achy/dull pain along with nausea-we sent patient for urgent CT pancreas on Sunday due to concern for potential mass -this did not show any masses or cysts- did show pancreatic atrophy-re commended he start on pancreatic enzymes. I had a very thorough discussion regarding diabetes and complicati ons of diabetes. Risks, benefits and side effects of all medication s and therapy up to and including were discussed in detail with patient. This included not following physician recommenda tions. Patient is alert and oriented times four. Patient made their own informed and educated decision regarding diabetic care and control. continue rosuvastat in as LDL in goal range. Dyslipidemia 607508671 E 78.5 refill rosuvastat in 40 mg daily at bedtime as LDL not in ideal range. Spent up to 25 minutes preparing to see the patient (eg, review of tests), obtaining and/or reviewing separately obtained history, performing a medically appropriat e examinatio n and evaluation , counseling and educating the patient, ordering medication s, tests, along with documentin g clinical informatio n in the electronic health record, independen tly interpreti ng results and communicat ing results to the patient. Patient can be followed by PCP - she/he is aware of my resignatio n and last day of February 16. If needed his/her PCP can refer patient to another endocrinol ogist in the area. All questions /concerns answered and refills necessary at visit today. Health Concerns Section Related Observation LastModified by Organization Detai ls LastModified Time None Recorded Concern Status LastModified by Organization Details LastModified Time None Recorded Advance Directives Directive None Recorded Payers Insurance Date Sequence Insurance Name Policy Number Policy San Covered Member ID San Member ID Guarantor Name 02/05/2023 1 [employer] [id number] Tamiko Chase [id number] Ivan Chase Notes Date Note Type Note Provider Name and Address Organization Details Recorded Time 07/24/2022 text/html 67 yo male comes in for follow up in management of poorly controlled RACHID type IB ( A1C >14%), dyslipidemia. last seen in December at that time he was continued on insulin only as his cpeptide was low- he was educated to split his semglee and start at 8 units in a.m. and 12 units in p.m. and titrate by 1 unit to maintain FBG 90-130.We had patient continue humalog 10 units (1:5) plus correction 1u:50>150 before meals. he is not taking humalog at this time. He has a fear of needles and not liking to take 5 injections a day. we continued rosuvastatin. He has since run out Meal regimen:breakfast: marble pastry vs fruitlunch: varies, may have peanut butter crackers vs a sandwichdinner: usually cooks at home doesn't drink much water He is testing his sugars several times a day.AM fasting over 200 mg/dLpremeals over 200 mg/dLno hypoglycemia labs from 07/04/22:TSH 4.44 uIU/mlFT4 of 1.0 ng/dLa1c >14%211/99/64/126g lucose 336 mg/dlcr normallft normal Cheryl Contreras MD [address] [facility] [address], [place], [address], [facility] [employer] 07/24/2022 11:43:35 09/25/2022 text/html 67 yo male comes in for follow up in management and evaluation of poorly controlled type 2 DM (A1C of 12.5% down from 14%), dyslipidemia. last seen in July at that time we reminded patient again for the third time to split his semglee and increase to 12 units in morning and 16 units at bedtime and increase by 2 units every 3 days until fasting glucose 90-130 mg/dL.We had patient continue on humalog 10 units (1:5) plus correction 1u:50>150 before meals. He has glucose sensor and sugars are very sporadic -currently 334 mg/dl however he did not take humalog prior to having two donuts this morning. he is not consistent taking his humalog insulin before meals. Most mornings he is 60-80 mg/dL He is now taking semglee 12 units in morning along with 16-18 units at bedtime. on glucose on labwork at 65 mg/dL so concerns for lows in morning. labs from 09/13/22:microalbum in 21 ug/mga1c 12.5% down from over 14%TSH of 2.98 uIU/mlFT4 of 1.3 ng/dLglucose 65 mg/dLpotassium 3.4 mmol/L116/60/45/57 Cheryl Contreras MD [address] [facility] [address], [place], [address], [facility] [employer] [facility] 09/25/2022 14:03:56 02/02/2023 text/html 67 yo male comes in for follow up in management of very poorly controlled RACHID (A1C of 12.8% stable was over 14%), new concerns of weight loss and abdominal pain. last seen in September we transitioned patient off semglee to tresiba due to long acting duration of effect and decreased frequency of hypoglycemia associated with it. We started patient at 12 units once daily at bedtime and patient advised to titrate up or down by 2 units every 4 days until fasting glucose is running 90-120 mg/dL consistently. He was advised to follow a 1:10 carb ratio for his meals if he is eating a starchy carb diet in addition to correction of 1U:50>150 mg/dl on premeal FS prior to meals. He was not taking his insulin consistently as recommended before meals. Patient has lost 10 pounds since his last visit. He is having more nausea, and some vomiting. He is also noticing more lower quadrant pain / tingling in his - he has had this going on for a few months ago. He has never smoked and never used alcohol. He is back to taking the semglee and humalog- he felt the tresiba was not touching the sugars.His humalog is running 8-10 units before meals and he feels his sugars are not the most accurate - he felt shakey when meter read 197 mg/dL. labs from 11/30/22:a1c of 12.8 %microalbumin 12 ug/mgglucose 322 mg/dLCr normalLFT normal Cheryl Contreras MD [address], [address], [place], [address], [place] [employer] 02/02/2023 18:49:26 02/05/2023 text/html 67 yo male comes in for follow up in management of poorly controlled type I DM (A1C of 12.8%) and weight loss found to have EPI. we sent patient for urgent CT abd/pancreas on Sunday due to 11 pound weight loss and abdominal pain/nausea. He was not found to have a mass or cyst of concern on imaging- he has pancreatic atrophy in setting of worsening DM. His sugars were 98 mg/dL this morning. he is currently taking semglee 15 units at bedtime and not take anything this morning. He hd coffee and cookie this morning and now 279 mg/dL in clinic today. To find out he did not take any semglee this morning as recommended and did not take humalog before he had food- sugar of 269 mg/dL in clinic today. Cheryl Contreras MD [address] [place] [address], [place], [address], [employer] 02/05/2023 13:34:15
--- NOTE | 2024-11-08 09:27 | ED_ITS ---
HPI - General Adult General Chief complaint: Recheck/Abnormal Lab/Rx Stated complaint: hypoglycemic Time Seen by Provider: 11/08/24 07:11 History of Present Illness HPI narrative: Patient 69-year-old gentleman who presents emergency department with chief complaint of low blood sugar. Patient has history of diabetes and reports he takes insulin patient reports this morning he was sweaty and unresponsive and his glucometer was reading low patient was given IM glucagon and also given D10 by EMS patient reports now feels okay reports that he has had where his blood sugars have been running low lately Related Data Home Medications ?Medication ?Instructions ?Recorded ?Confirmed ?Last Taken ?Type Semglee Pen U-100 Insulin See Rx Instructions .Route .COMPLEX 02/24/22 02/24/22 Unknown History Humalog U-100 Insulin See Protocol 02/25/22 Unknown History Allergies Allergy/AdvReac Type Severity Reaction Status Date / Time No Known Allergies Allergy Verified 02/24/22 18:03 Review of Systems 2 Review of Systems: A 10 system review of systems was completed on the patient and is negative except for what is stated in the HPI. Nursing and ancillary documentation was reviewed. FOR[facility]LY [facility], [facility] Past Medical History Medical History Gout Chronic GERD COVID-19 DM2 (diabetes mellitus, type 2) Diabetes mellitus Surgical History Surgical History H/O hernia repair Family History Family History Mother Cancer Mother Cancer Social History Social History Social History: The patient is and lives with his . 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 Lifelong nonsmoker and no alcohol or illicit drugs. His is the durable power deputy county attorney for healthcare. Code status DNR Smoking status: Never smoker Second hand tobacco smoke exposure: No Alcohol intake: never Substance use: never Substance use type: does not use Lack of Transportation: No Lack of Food: Never True Current Housing: I Have Housing Concerned About Future Housing: No Difficulty Paying Gas/Electric Bills: No Difficulty Paying for Meds: No Currently Unemployed: No Education: Bachelor's Degree Difficulty w/ Childcare or Family Care: No Spiritual care concerns: No Exam 2 Narrative: GENERAL: Well-appearing, well-nourished, and in no acute distress. HEAD: Normocephalic, atraumatic. EYES: PERRLA and EOMI. ENT: Nares clear, no rhinorrhea or epistaxis. Mucous membranes moist. NECK: Supple. CHEST: Clear to auscultation. No respiratory distress. HEART: Regular rate and rhythm. No murmur heard. Normal peripheral pulses. ABDOMEN: Soft, nontender, nondistended, normal active bowel sounds. EXTREMITIES: Normal range of motion. No edema. SKIN: Warm, dry, no rash. NEURO: No focal deficits. Alert and oriented x3. PSYCH: Normal mood and affect. Course Vital Signs Vital signs: Vital Signs Temperature 36.7 C 11/08/24 06:37 Pulse Rate 72 11/08/24 06:37 Respiratory Rate 18 11/08/24 06:37 Blood Pressure 146/85 H 11/08/24 06:37 Pulse Oximetry 97 11/08/24 06:37 Oxygen Delivery Room Air 11/08/24 06:37 Temperature 36.7 C 11/08/24 06:37 Pulse Rate 77 11/08/24 07:39 Respiratory Rate 15 11/08/24 07:39 Blood Pressure 129/93 H 11/08/24 07:39 Pulse Oximetry 100 11/08/24 07:39 Oxygen Delivery Room Air 11/08/24 06:37 Medical Decision Making [facility] Narrative Medical decision making narrative: Differential diagnosis includes electrolyte abnormality, pneumonia, Patient was observed in the emergency department with serial blood sugar checks Urinalysis did show evidence of a white blood cells with budding yeast the patient is currently on fluconazole patient had normal renal function CBC showed a normal white blood cell count Vital Signs Vital Signs: Vital Signs Temperature 36.7 C 11/08/24 06:37 Pulse Rate 72 11/08/24 06:37 Respiratory Rate 18 11/08/24 06:37 Blood Pressure 146/85 H 11/08/24 06:37 Pulse Oximetry 97 11/08/24 06:37 Oxygen Delivery Room Air 11/08/24 06:37 Temperature 36.7 C 11/08/24 06:37 Pulse Rate 77 11/08/24 07:39 Respiratory Rate 15 11/08/24 07:39 Blood Pressure 129/93 H 11/08/24 07:39 Pulse Oximetry 100 11/08/24 07:39 Oxygen Delivery Room Air 11/08/24 06:37 Lab Data 11/08/24 06:45 11/08/24 06:45 Labs: Lab Results 11/08/24 11/08/24 11/08/24 Range/Units 06:43 06:45 07:38 WBC 8.8 (4.5-10.0) K/mm3 RBC 3.86 L (4.6-6.20) M/mm3 Hgb 11.3 L (14.0-18.0) g/dL Hct 35.1 L (42.0-52.0) % MCV 90.9 (80-100) fl MCH 29.3 (26-34) pg MCHC 32.2 (32-36) g/dl RDW 13.9 (11.5-14.5) % Plt Count 210 (150-375) k/mm3 MPV 8.4 (7.4-10.4) fl Immature Gran % (Auto) 0.8 H (0-0.5) % Neut % (Auto) 75.9 H (45.5-73.1) % Lymph % (Auto) 16.8 L (18.3-44.2) % [place] % (Auto) 3.7 (2.6-8.5) % Eos % (Auto) 2.2 (0-4.4) % Baso % (Auto) 0.6 (0.2-1.2) % Lymph # (Auto) 1.48 (0.9-3.2) K/mm3 [place] # (Auto) 0.3 (0.1-0.6) K/mm3 Eos # (Auto) 0.2 (0-0.3) K/mm3 Baso # (Auto) 0.1 (0.0-0.1) K/mm3 Abs Immat Gran (auto) 0.07 H (0.00-0.031) K/mm3 Absolute Neuts (auto) 6.7 (1.3-6.7) K/mm3 Absolute Nucleated RBC 0.000 (0.0-0.012) K/mm3 Nucleated RBC % 0.0 (0.0-0.2) % PT 12.2 (11.1-14.7) Seconds INR 0.9 APTT 29.3 (22.3-36.8) Seconds Sodium 134 L (137-145) mmol/L Potassium 3.6 (3.4-5.0) mmol/L Chloride 106 (98-107) mmol/L Carbon Dioxide 22 (22-30) mmol/L Anion Gap 6 (4-12) mmol/L BUN 7 L (9-20) mg/dL Creatinine 0.60 L (0.7-1.3) mg/dL Estim Creat Clear Calc 67 ml/min Estimated GFR > 60 (59 - ) Glucose 326 H (65-110) mg/dL POC Capillary Glucose 308 H (65-105) mg/dl Calcium 8.3 L (8.4-10.2) mg/dL Total Bilirubin 0.1 L (0.2-1.3) mg/dL AST 23 (17-59) U/L ALT 17 (6-50) U/L Alkaline Phosphatase 65 (38-126) U/L Total Protein 5.2 L (6.3-8.2) g/dL Albumin 2.7 L (3.5-5.1) g/dL Urine Color Yellow (Yellow) Urine Appearance Clear (Clear) Urine pH 5.5 (5.0-9.0) Ur Specific [place] 1.009 (1.001-1.035) Urine Protein Negative (Negative) mg/dL Urine Glucose (UA) 2+ H (Negative) mg/dL Urine Ketones Negative (Negative) mg/dL Ur Blood (Man) Negative (Negative) Urine Nitrate Negative (Negative) Urine Bilirubin Negative (Negative) Urine Urobilinogen 0.2 (<2.0) mg/dL Leukocyte Esterase Rfl Trace H (Negative) NU/UL Urine RBC 0-2 (0-2) /hpf Urine WBC 6-10 H (0-3) /hpf Ur Squamous Epith Cells None seen (Few) /hpf Calcium Oxalate Crystal Present (None) /hpf Urine Bacteria Rare /hpf Urine Casts 0-2 Urine Yeast (Budding) Present H (None) /hpf // Range/Units 08:38 WBC (4.5-10.0) K/mm3 RBC (4.6-6.20) M/mm3 Hgb (14.0-18.0) g/dL Hct (42.0-52.0) % MCV (80-100) fl MCH (26-34) pg MCHC (32-36) g/dl RDW (11.5-14.5) % Plt Count (150-375) k/mm3 MPV (7.4-10.4) fl Immature Gran % (Auto) (0-0.5) % Neut % (Auto) (45.5-73.1) % Lymph % (Auto) (18.3-44.2) % [place] % (Auto) (2.6-8.5) % Eos % (Auto) (0-4.4) % Baso % (Auto) (0.2-1.2) % Lymph # (Auto) (0.9-3.2) K/mm3 [place] # (Auto) (0.1-0.6) K/mm3 Eos # (Auto) (0-0.3) K/mm3 Baso # (Auto) (0.0-0.1) K/mm3 Abs Immat Gran (auto) (0.00-0.031) K/mm3 Absolute Neuts (auto) (1.3-6.7) K/mm3 Absolute Nucleated RBC (0.0-0.012) K/mm3 Nucleated RBC % (0.0-0.2) % PT (11.1-14.7) Seconds INR APTT (22.3-36.8) Seconds Sodium (137-145) mmol/L Potassium (3.4-5.0) mmol/L Chloride (98-107) mmol/L Carbon Dioxide (22-30) mmol/L Anion Gap (4-12) mmol/L BUN (9-20) mg/dL Creatinine (0.7-1.3) mg/dL Estim Creat Clear Calc ml/min Estimated GFR (59 - ) Glucose (65-110) mg/dL POC Capillary Glucose 218 H (65-105) mg/dl Calcium (8.4-10.2) mg/dL Total Bilirubin (0.2-1.3) mg/dL AST (17-59) U/L ALT (6-50) U/L Alkaline Phosphatase (38-126) U/L Total Protein (6.3-8.2) g/dL Albumin (3.5-5.1) g/dL Urine Color (Yellow) Urine Appearance (Clear) Urine pH (5.0-9.0) Ur Specific [place] (1.001-1.035) Urine Protein (Negative) mg/dL Urine Glucose (UA) (Negative) mg/dL Urine Ketones (Negative) mg/dL Ur Blood (Man) (Negative) Urine Nitrate (Negative) Urine Bilirubin (Negative) Urine Urobilinogen (<2.0) mg/dL Leukocyte Esterase Rfl (Negative) NU/UL Urine RBC (0-2) /hpf Urine WBC (0-3) /hpf Ur Squamous Epith Cells (Few) /hpf Calcium Oxalate Crystal (None) /hpf Urine Bacteria /hpf Urine Casts Urine Yeast (Budding) (None) /hpf Discharge Plan Discharge Clinical Impression: Hypoglycemia Patient Disposition: Home Condition: Stable Instructions: Antibiotic Form, Hypoglycemia in a Person with Diabetes (ED) Patient Language: Telugu Prescriptions: No Action Semglee Pen U-100 Insulin See Rx Instructions .ROUTE .COMPLEX Rx Instructions: subcutaneously 12 units 0900 and 8 units at HS loperamide [Imodium A-D] 2 mg capsule 2 mg PO Q6H PRN (Reason: loose stool) Qty: 10 0RF Humalog U-100 Insulin 0 units solution See Protocol Protocol: Insulin Corrective Low-Dose Condition: glucose < 70 mg/dl Dose/Route: Follow Hypoglycemia Order Condition: glucose 70-200 mg/dl Dose/Route: No additional insulin Condition: glucose 201-250 mg/dl Dose/Route: 2 units sub-Q Condition: glucose 251-300 mg/dl Dose/Route: 3 units sub-Q Condition: glucose 301-350 mg/dl Dose/Route: 4 units sub-Q Condition: glucose 351-400 mg/dl Dose/Route: 5 units sub-Q Condition: glucose > 400 mg/dl Dose/Route: Call MD Protocol Text: *No Correction Dose at Bedtime* Rx Instructions: sliding scale as ordered per caregivers non medical Follow-up/Referrals: Aldo,Robert Tavera MD [Primary Care Provider] - Time of Disposition: 09:43
== END 2024-11-08 09:54 | disposition home or self-care (01) ==
PROVIDERS: Student in an Organized Health Care Education/Training Program; Emergency Provider Emergency Medicine; PCP Internal Medicine
DX: E11.649 Type 2 diabetes mellitus with hypoglycemia without coma (principal); K21.9 Gastro-esophageal reflux disease without esophagitis; M10.9 Gout, unspecified; Z66 Do not resuscitate; Z79.4 Long term (current) use of insulin; I45.9 Conduction disorder, unspecified
CPT/HCPCS: 36415; 80053; 81001; 82948; 85025; 85610; 85730; 87086; 93005; 99284